=== PATIENT | male | born 1945 | race Caucasian/White ===

== ENCOUNTER → 2017-02-24 | Outpatient (CLI) | payer OTHER, MEDICARE | LOC: FIMAGING 11:56 | PROVIDERS: ATTEND Neurological Surgery | DX: M99.71 Connective tissue and disc stenosis of intervertebral foramina of cervical region (principal); M89.38 Hypertrophy of bone, other site; Z98.1 Arthrodesis status ==

== ENCOUNTER → 2017-03-09 | Outpatient (CLI) | payer OTHER, MEDICARE | LOC: BMCIMAGING 11:22 | PROVIDERS: ATTEND Internal Medicine | DX: Z01.818 Encounter for other preprocedural examination (principal); Z90.2 Acquired absence of lung [part of]; Z98.1 Arthrodesis status ==

== ENCOUNTER 2017-03-15 05:38 | Inpatient (IN) | payer OTHER, MEDICARE ==
[2017-03-15] MEDS ORDERED: DEXAMETHASONE 10 MG/ML VIAL IVP ONE (06:00)
[2017-03-15] MEDS ORDERED: LR 1,000 ML IV ONE (06:26)
[2017-03-15] MEDS ORDERED: LIDOCAINE 1% 5 ML SDV ID PRN (06:26)
[2017-03-15] MEDS ORDERED: THROMBIN (BOVINE) 5,000 UNIT VIAL TP ONE ×2 (06:50→09:41)
[2017-03-15] MEDS ORDERED: BUPIVACAINE/EPI 0.25% 30 ML SDV ONE ×3 (06:50→11:07)
[2017-03-15] MEDS ORDERED: fentaNYL 100 MCG/2 ML INJ ONE ×5 (06:51→13:20)
[2017-03-15] MEDS ORDERED: PROPOFOL 200 MG/20 ML VIAL ONE ×2 (06:53)
[2017-03-15] MEDS ORDERED: MIDAZOLAM 2 MG/2 ML VIAL ONE (07:03)
[2017-03-15] MEDS ORDERED: CITRATE DEXTROSE SOLN 500 ML BAG ONE ×2 (08:10→10:23)
[2017-03-15] MEDS ORDERED: ceFAZolin 2 GM/DEXTROSE 100 ML IV ONE (08:30)
[2017-03-15] MEDS ORDERED: BUPIVACAINE 0.25% 30 ML SDV ONE (09:41)
[2017-03-15] MEDS ORDERED: BACITRACIN 50,000 UNITS/10 ML SYR IRR ONE ×2 (09:43→09:58)
[2017-03-15] MEDS ORDERED: ACETAMINOPHEN 325 MG TAB PO PRN (12:40)
[2017-03-15] MEDS ORDERED: BISACODYL 10 MG SUPP PR PRN (12:40)
[2017-03-15] MEDS ORDERED: diphenhydrAMINE 25 MG CAP PO PRN (12:40)
[2017-03-15] MEDS ORDERED: MAGNESIUM HYDROXIDE 30 ML UDCUP PO PRN (12:40)
[2017-03-15] MEDS ORDERED: ONDANSETRON DISINTEGRATING 4 MG TAB PO PRN (12:40)
[2017-03-15] MEDS ORDERED: NALOXONE HCL 0.4 MG/ML INJ IVP PRN (12:40)
[2017-03-15] MEDS ORDERED: ONDANSETRON 4 MG/2 ML VIAL IVP PRN (12:40)
[2017-03-15] MEDS ORDERED: LACTULOSE 20 GM/30 ML UDCUP PO PRN (12:40)
[2017-03-15] MEDS ORDERED: oxyCODONE IR 5 MG TAB PO PRN (12:40)
[2017-03-15] MEDS ORDERED: OXYCODONE/APAP 5/325 TAB PO PRN (12:40)
[2017-03-15] MEDS ORDERED: PROPRANOLOL HCL 20 MG TAB PO PRN (12:46)
[2017-03-15] MEDS ORDERED: NON-FORMULARY NEW DRUG (Clonazepam [Klonopin] 0.5 MG) PO PRN (12:46)
--- NOTE | 2017-03-15 12:49 | SOAPPROG ---
SOAP Progress Note Assessment/Plan: Assessment: 71 yo M sp C3-5 ACDF and posterior fusion Plan: stable to 3N PT/OT soft collar please call with neuro changes 03/15/17 12:47 Subjective: + neck pain, no arm pain. Objective: awake, alert PERRL, no facial droop TORY x 4 + light touch C/D/I x 2 ICD10 Worksheet Patient Problems: Problems Problem Status Onset Fusion of spine of cervical region Acute - ICD10 Problem Qualifiers (1) Fusion of spine of cervical region
[2017-03-15] MEDS ORDERED: DIAZEPAM 10 MG/2 ML SYR ONE (13:10)
[2017-03-15] MEDS ORDERED: KETOROLAC 30 MG/1 ML SDV ONE (13:21)
[2017-03-15] MEDS ORDERED: KETAMINE 100 MG/10 ML SYR IVP ONE (13:29)
[2017-03-15] MEDS ORDERED: HYDROmorphONE/DILAUDID 1 MG/ML SYR ONE (13:44)
--- NOTE | 2017-03-15 13:57 | GOP ---
[f rep st] OPERATIVE REPORT DATE OF OPERATION: 03/15/2017 SURGEON: Faustino Brown MD GROCERY SACKER: ZEYNEP Castro ANESTHESIA: General endotracheal. PREOPERATIVE DIAGNOSIS: 1. 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 2. Progressive cervical spondylitic myelopathy. 3. Left upper extremity radiculopathy. 4. Failed conservative care. POSTOPERATIVE DIAGNOSIS: 1. 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 2. Progressive cervical spondylitic myelopathy. 3. Left upper extremity radiculopathy. 4. Failed conservative care. 5. Morbid obesity. PROCEDURE PERFORMED: 1. Removal of C4-5 anterior cervical plate with exploration of spinal fusion. 2. Redo C4-5 and new C3-4 anterior cervical diskectomy and arthrodesis with placement of 2 structur al PEEK interbody spacers with local autograft. 3. Placement of a [employer] anterior cervical plate from C3 through C5. 4. Partial C4 vertebral corpectomy. 5. Use of intraoperative microscopy and fluoroscopy. FINDINGS: ESTIMATED BLOOD LOSS: 50 cc. INDICATIONS: The patient is a 71-year-old man with a history of a C4-5 fusion and apparent pseudoar throsis/nonunion on x-rays and severe residual C4-5 neuroforaminal stenosis on MRI. He has disc deg eneration and collapse, along with a herniation and ligamentum flavum hypertrophy at C3-4, causing s evere cervical stenosis and spinal cord compression. He also has ligamentum flavum hypertrophy at C 4-5. The patient presents now for a surgical decompression, stabilization, and revision of the C4-5 level with a new C3-4 anterior cervical diskectomy and arthrodesis. DESCRIPTION OF PROCEDURE: After informed consent was obtained, the patient was taken to the operati ng room and placed in the supine position, the head in the halter retractor system. The anterior ce rvical region was prepped and draped in a sterile fashion. After fluoroscopic localization of the c orrect levels, the subcutaneous and intramuscular tissues were infiltrated with local anesthesia. A horizontal incision was made. Just left of the midline, and a large skin crease at the C4-5 level. This was carried down through the platysma which was then incised using monopolar electrocautery a nd carried in the avascular plane between the sternocleidomastoid and carotid sheath laterally and t he strap muscles, trachea, and esophagus medially down to the prevertebral fascia, which was careful ly incised with Metzenbaum scissors. The C3-4 and C4-5 interspaces were carefully identified, and t he prior plate carefully dissected out and removed in the standard fashion. The C4-5 interspace was then explored and noted to have some movement that verified the nonunion. The area was carefully d issected out, and meticulous hemostasis was achieved from C3 through C5. The distraction pins were then inserted, and under high-power microscopic visualization, a new diskectomy was performed at the C3-4 level, which was carried down with the posterior longitudinal ligament. This was carefully re moved, and bilateral foraminotomies were performed. A redo C4-5 diskectomy was also performed with complete drilling out of the old allograft and fibrous tissue down to what was thought to be the pos terior longitudinal ligament and dura, which was scarred in. The 5-0 angled curette and the 1 and 2 mm Kerrison rongeurs were utilized to carefully dissect out and remove any residual foraminal steno sis from both scar tissue and osteophytic hypertrophy. Following this, the decompression of the wou nd and disc spaces were copiously irrigated with antibiotic irrigation. Meticulous hemostasis was a chieved. Note that a fair amount of bone had to be removed from both the C3-4 and C4-5 level, espec ially at the C4-5 level extending up into the C4 vertebral body and from the C3-4 level extending do wn in the C4 vertebral body, which we managed to approximately 50% removal of the vertebral body for partial C4 vertebral corpectomy. Following this, meticulous hemostasis was again achieved, and the interspaces were appropriately measured. Two structural PEEK interbody spacers, along with local a utograft, were placed in the C3-4 and C4-5 interspaces. The distraction was then removed and follow ing x-ray verification of good position of the plate screws and interbody spacers, the uncovertebral joints and anterior hole plate were gently packed with residual local autograft. A drain was place d. The subcutaneous and intramuscular tissues were re-infiltrated with local anesthesia. The wound was closed in a layered fashion using interrupted Vicryl sutures, followed by Steri-Strips on the s kin. COMPLICATIONS: None. DISPOSITION: The patient remained intubated and was repositioned for the prone portion of the opera tion. /[id number]/MODL
--- NOTE | 2017-03-15 14:13 | GOP ---
[f rep st] OPERATIVE REPORT DATE OF OPERATION: 03/15/2017 SURGEON: Faustino Brown MD LINEN CONTROLLER: ZEYNEP Castro ANESTHESIA: General endotracheal. PREOPERATIVE DIAGNOSIS: 1. 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 2. Progressive cervical spondylotic myelopathy. 3. Left upper extremity radiculopathy. 4. Failed conservative care. POSTOPERATIVE DIAGNOSIS: 1. 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 2. Progressive cervical spondylotic myelopathy. 3. Left upper extremity radiculopathy. 4. Failed conservative care. 5. Morbid obesity. PROCEDURE PERFORMED: 1. C3 through C5 laminectomies for decompression of spinal canal. 2. Left C4-5 foraminotomy. 3. Placement of C3 through C5 posterior segmental (lateral mass screw) fixation and posterolateral fusion with local autograft. FINDINGS: ESTIMATED BLOOD LOSS: About 100 cc. INDICATIONS: The patient is a 71-year-old man with a history of a C4-5 fusion and apparent pseudoarthrosis/nonunion on x-rays and severe residual C4-5 neuroforaminal stenosis on MRI. He has disk degeneration and collapse, along with a herniation and ligamentum flavum hypertrophy at C3-4, causing severe cervical stenosis and spinal cord compression. He also has ligamentum flavum hypertrophy at C4-5. The patient Presents now for a surgical decompression, stabilization, and revision of the C4 -5 level with a new C3-4 anterior cervical diskectomy and arthrodesis. DESCRIPTION OF PROCEDURE: The patient's body habitus made positioning very difficult, and the large skin creases in the back of his neck made it also difficult to even make an incision. The skin and fascial layer, which was incised using monopolar electrocautery and carried in the subperiosteal plane along the spinous processes down to lamina at C3, C4 and C5. Intraoperative fluoroscopy was utilized to verify the correct levels. Following this, the [employer] drill system with a match stick fluted bur was carefully utilized to drill a trough between the lateral masses and the lamina and spinous processes, which were then removed in standard fashion for a full laminectomy at C3 and C4 with a partial laminectomy at C5 and slight undercutting of C2 in order to ensure adequate decompression and avoid kinking of the dura and spinal cord. Following adequate decompression and copious irrigation of the wound and meticulous hemostasis, bipolar fluoroscopy was utilized to place a lateral mass screw fixation at C3, C4, and C5 using 12 mm screws. Biplanar fluoroscopy was utilized to verify good position of the screws. Following this, rods were placed and secured with maximal lordosis. The wound was again copiously irrigated and hemostasis was achieved. A few interrupted Vicryl sutures were then placed in the posterior muscle gently, followed by a running Mersilene suture in the fascia. The subcutaneous and intramuscular tissues were then re- infiltrated with local anesthesia, and the wound was closed in a layered fashion using interrupted Vicryl sutures, followed by Steri-Strips on the skin. COMPLICATIONS: None. DISPOSITION: The patient was extubated and transferred to the recovery room in stable condition. /[id number]/MODL MTDD
[2017-03-15] MEDS: HYDROmorphONE/DILAUDID 1 MG/ML SYR IVP PRN ×4 (15:44→20:14)
[2017-03-15] MEDS: NS W/ 20 KCl/L 1,000 ML IV SCH (15:46)
[2017-03-15] MEDS: POLYETHYLENE GLYCOL 3350 17 GM PKT PO SCH ×2 (16:44→22:33)
[2017-03-15] MEDS: GABAPENTIN 300 MG CAP PO SCH ×2 (16:44→20:27)
[2017-03-15] MEDS: METHOCARBAMOL 750 MG TAB PO PRN (18:06)
[2017-03-15] MEDS: ATORVASTATIN CALCIUM 20 MG TAB PO SCH (18:33)
[2017-03-15] MEDS: ZOLPIDEM TARTRATE 5 MG TAB PO SCH (20:18)
[2017-03-15] MEDS: morphINE SR 15 MG TAB PO SCH ×2 (20:18→23:32)
[2017-03-15] MEDS: SENNOSIDES/DOCUSATE SODIUM TAB PO SCH (20:23)
[2017-03-15] MEDS: FAMOTIDINE 20 MG/NACL 50 ML IV SCH (20:30)
[2017-03-15] MEDS: DIAZEPAM 10 MG/2 ML SYR IVP PRN (21:05)
[2017-03-15] MEDS: HYDROmorphONE/DILAUDID 6 MG/30 ML PCA IV PRN (22:42)
[2017-03-15] MEDS: HYDROCODONE/APAP 10/325 TAB PO PRN (22:52)
[2017-03-16] MEDS: DIAZEPAM 10 MG/2 ML SYR IVP PRN ×2 (05:17→15:47)
[2017-03-16] MEDS: NS W/ 20 KCl/L 1,000 ML IV SCH ×2 (05:17→21:12)
[2017-03-16 05:26] LABS: % IMMATURE GRANULYOCYTES 0.6 % (0.0-1.1); ABSOLUTE IMMATURE GRANULOCYTES 0.11 10^3/uL (0.00-0.10); ADD DIFF? NO; ADD MORPH? NO; ADD SCAN? NO; ATYPICAL LYMPHOCYTE FLAG 0 (0-99); FRAGMENT RBC FLAG 0 (0-99); HEMATOCRIT 43.9 % (40.0-51.0); HEMOGLOBIN 15.1 g/dL (13.7-17.5); LEFT SHIFT FLG 40 (0-99); LIPEMIA HEMOLYSIS FLAG 90 (0-99); MEAN CELL HEMOGLOBIN 32.3 pg (27.9-34.1); MEAN CELL HEMOGLOBIN CONCENTR. 34.4 g/dL (32.4-36.7); MEAN CELL VOLUME 93.8 fL (81.5-99.8); MEAN PLATELET VOLUME 11.4 fL (8.7-11.7); PLATELET CLUMPS FLAG 0 (0-99); PLATELET COUNT 184 10^3/uL (150-400); RED BLOOD CELL COUNT 4.68 10^6/uL (4.40-6.38); RED CELL DISTRIBUTION WIDTH 12.8 % (11.5-15.2)
[2017-03-16 05:49] LABS: ANION GAP 10 mEq/L (8-16); CALCIUM 8.8 mg/dL (8.5-10.4); CARBON DIOXIDE 24 mEq/l (22-31); CHLORIDE 106 mEq/L (97-110); CREATININE 0.8 mg/dL (0.7-1.3); GLOMERULAR FILTRATION RATE > 60; GLUCOSE 125 mg/dL (70-100); POTASSIUM 4.8 mEq/L (3.5-5.2); SODIUM 140 mEq/L (134-144)
--- NOTE | 2017-03-16 06:43 | SOAPPROG ---
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 Objective: Vital Signs Temp Pulse Resp BP Pulse Ox 36.6 C 88 18 130/69 H 95 03/16/17 04:58 03/16/17 04:58 03/16/17 04:58 03/16/17 04:58 03/16/17 04:58 Laboratory Results 03/16/17 04:20 03/16/17 04:20 03/15/17 03/16/17 03/17/17 05:59 05:59 05:59 Intake Total 3185 Output Total 1645 Balance 1540 AAOx4, +FC PERRL, EOMI, no facial droop 5/5 + light touch C/D/I x 2 ICD10 Worksheet Patient Problems: Problems Problem Status Onset Fusion of spine of cervical region Acute - ICD10 Problem Qualifiers (1) Fusion of spine of cervical region
[2017-03-16] MEDS: HYDROmorphONE/DILAUDID 6 MG/30 ML PCA IV PRN ×2 (08:27→22:37)
[2017-03-16] MEDS: POLYETHYLENE GLYCOL 3350 17 GM PKT PO SCH ×3 (08:37→21:12)
[2017-03-16] MEDS: FAMOTIDINE 20 MG/NACL 50 ML IV SCH ×2 (08:37→21:10)
[2017-03-16] MEDS: morphINE SR 15 MG TAB PO SCH ×2 (08:40→21:12)
[2017-03-16] MEDS: SENNOSIDES/DOCUSATE SODIUM TAB PO SCH ×2 (08:40→21:13)
[2017-03-16] MEDS: PANTOPRAZOLE SODIUM 40 MG TAB PO SCH (08:40)
[2017-03-16] MEDS: GABAPENTIN 300 MG CAP PO SCH ×3 (08:40→21:10)
[2017-03-16] MEDS ORDERED: NON-FORMULARY NEW DRUG (Esomeprazole Magnesium [Nexium 24hr] 22.3 MG) PO SCH (09:00)
[2017-03-16] MEDS: ATORVASTATIN CALCIUM 20 MG TAB PO SCH (21:09)
[2017-03-16] MEDS: ZOLPIDEM TARTRATE 5 MG TAB PO SCH (21:13)
[2017-03-16] MEDS: DIAZEPAM 5 MG TAB PO PRN (23:06)
[2017-03-17] MEDS: METHOCARBAMOL 750 MG TAB PO PRN (05:31)
[2017-03-17] MEDS: NS W/ 20 KCl/L 1,000 ML IV SCH ×2 (07:41→21:08)
--- NOTE | 2017-03-17 07:48 | SOAPPROG ---
SOAP Progress Note Assessment/Plan: Assessment: 71 yo male POD #2 s/p C3-5 ACDF and posterior fusion C3-5. Acute Urinary retention overnight requiring straight cath x 2 with approx 1000ml each time. Left finger paresthesias improved today sore throat difficulty swallowing Plan: Place Bhatia this AM Start Flomax PT/OT/ST Continue soft collar continue both ant and post JPs. 03/17/17 07:44 Subjective: lying in bed, pain well controlled. Denies new weakness or tingling. Unable to void, Mild HERNANDEZ. Objective: Vital Signs Temp Pulse Resp BP Pulse Ox 36.8 C 98 18 140/94 H 94 03/17/17 03:00 03/17/17 05:00 03/17/17 05:00 03/17/17 05:00 03/17/17 05:00 Laboratory Results 03/16/17 04:20 03/16/17 04:20 03/16/17 03/17/17 03/18/17 05:59 05:59 05:59 Intake Total 3185 1150 Output Total 1645 3106 Balance 1540 -1956 Ant TRISTIAN: 36ml Post TRISTIAN: 70 ml Neuro: CUEVAS, sens +LT equal timber killer Ant dressing: CDI Post dressing: Moderate saturation ICD10 Worksheet Patient Problems: Problems Problem Status Onset Fusion of spine of cervical region Acute
[2017-03-17] MEDS: SENNOSIDES/DOCUSATE SODIUM TAB PO SCH ×2 (08:28→21:05)
[2017-03-17] MEDS: PANTOPRAZOLE SODIUM 40 MG TAB PO SCH (08:28)
[2017-03-17] MEDS: TAMSULOSIN HCL 0.4 MG CAP PO SCH (08:28)
[2017-03-17] MEDS: GABAPENTIN 300 MG CAP PO SCH ×3 (08:28→21:04)
[2017-03-17] MEDS: FAMOTIDINE 20 MG TAB PO SCH ×2 (08:29→21:09)
[2017-03-17] MEDS: morphINE SR 15 MG TAB PO SCH ×2 (09:14→21:10)
[2017-03-17] MEDS: HYDROCODONE/APAP 10/325 TAB PO PRN ×2 (13:11→16:02)
[2017-03-17] MEDS: DIAZEPAM 5 MG TAB PO PRN (13:13)
[2017-03-17] MEDS: POLYETHYLENE GLYCOL 3350 17 GM PKT PO SCH ×3 (14:20→21:02)
[2017-03-17] MEDS: clonazePAM 0.5 MG TAB PO PRN (16:03)
[2017-03-17] MEDS: ATORVASTATIN CALCIUM 20 MG TAB PO SCH (18:11)
[2017-03-17] MEDS: ZOLPIDEM TARTRATE 5 MG TAB PO SCH (21:09)
[2017-03-18] MEDS: DIAZEPAM 10 MG/2 ML SYR IVP PRN (00:10)
[2017-03-18] MEDS: HYDROCODONE/APAP 10/325 TAB PO PRN ×4 (01:15→20:07)
[2017-03-18] MEDS: clonazePAM 0.5 MG TAB PO PRN ×2 (01:15→17:12)
[2017-03-18] MEDS: FLUTICASONE NASAL 120 SPRAYS/16 GM MDI EACHNARE PRN ×3 (01:25→21:32)
[2017-03-18] MEDS: METHOCARBAMOL 750 MG TAB PO PRN ×3 (03:04→13:24)
[2017-03-18] MEDS: HYDROmorphONE/DILAUDID 1 MG/ML SYR IVP PRN ×2 (03:04→06:31)
--- NOTE | 2017-03-18 07:48 | SOAPPROG ---
SOAP Progress Note Assessment/Plan: Assessment: 71 yo M POD #3 C3-5 ACDF and posterior fusion Plan: stable difficulty with sleeping, suggested to not add ambien but try to get patient some rest this am. 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, switch to po meds PT/OT scd/angelika for dvt prophylaxis, lovenox starts POD #3 (03/18/17) please call with neuro changes discussed with DR Hutson 03/15/17 12:47 03/16/17 06:41 03/18/17 07:47 Subjective: + neck pain, swallowing better, no arm pain, arm paresthesias better Objective: Vital Signs Temp Pulse Resp BP Pulse Ox 36.6 C 68 16 135/81 H 96 03/17/17 22:35 03/17/17 22:35 03/17/17 22:35 03/17/17 22:35 03/17/17 22:35 Laboratory Results 03/16/17 04:20 03/16/17 04:20 03/17/17 03/18/17 03/19/17 05:59 05:59 05:59 Intake Total 1150 1150 1877 Output Total 3106 2175 Balance -1955 -1024 1877 AAOX4, +FC PERRL, EOMI, no facial droop 5/5 + light touch C/D/I x 2 ICD10 Worksheet Patient Problems: Problems Problem Status Onset Fusion of spine of cervical region Acute - ICD10 Problem Qualifiers (1) Fusion of spine of cervical region
[2017-03-18] MEDS: morphINE SR 15 MG TAB PO SCH ×2 (08:44→21:38)
[2017-03-18] MEDS: TAMSULOSIN HCL 0.4 MG CAP PO SCH (08:44)
[2017-03-18] MEDS: SENNOSIDES/DOCUSATE SODIUM TAB PO SCH ×2 (08:44→21:38)
[2017-03-18] MEDS: FAMOTIDINE 20 MG TAB PO SCH (08:44)
[2017-03-18] MEDS: PANTOPRAZOLE SODIUM 40 MG TAB PO SCH (08:44)
[2017-03-18] MEDS: POLYETHYLENE GLYCOL 3350 17 GM PKT PO SCH ×3 (08:44→20:07)
[2017-03-18] MEDS: ENOXAPARIN 40 MG/0.4 ML SYR SC SCH (08:44)
[2017-03-18] MEDS: GABAPENTIN 300 MG CAP PO SCH ×3 (08:44→21:40)
[2017-03-18] MEDS: NS W/ 20 KCl/L 1,000 ML IV SCH (10:47)
[2017-03-18] MEDS: ATORVASTATIN CALCIUM 20 MG TAB PO SCH (17:06)
[2017-03-18] MEDS: ZOLPIDEM TARTRATE 5 MG TAB PO SCH (21:33)
[2017-03-18] MEDS: DIAZEPAM 5 MG TAB PO PRN (21:33)
[2017-03-18] MEDS ORDERED: IPRATROPIUM/ALBUTEROL 3 ML DEYVIAL IH ONE (23:30)
[2017-03-18 23:48] LABS: BASE EXCESS 2.8 mEq/L (-2.5-2.5); BICARBONATE 29 mEq/L (22-26); MEASURED OXYGEN SATURATION 82 % (92-95); PCO2 50 mmHg (34-38); PO2 47 mmHg (65-75); TCO2 30 mEq/L (23-27)
[2017-03-19] MEDS ORDERED: LORazepam 2 MG/ML INJ ONE (00:41)
[2017-03-19] MEDS ORDERED: hydrALAZINE 20 MG/ML VIAL IVP PRN (00:45)
[2017-03-19] MEDS ORDERED: IPRATROPIUM/ALBUTEROL 3 ML DEYVIAL IH PRN (00:45)
[2017-03-19] MEDS ORDERED: ALBUTEROL 3 ML DEYVIAL IH PRN (00:45)
[2017-03-19] MEDS: HYDROmorphONE/DILAUDID 1 MG/ML SYR IVP PRN (00:58)
[2017-03-19] MEDS: LORazepam 2 MG/ML INJ IVP PRN (00:58)
[2017-03-19] MEDS: ERTAPENEM 1 GM in NS 100 ML IV SCH ×2 (01:05→21:25)
[2017-03-19] MEDS ORDERED: DEXMEDETOMIDINE HCL 400 MCG in NS 100 ML IV SCH (01:30)
[2017-03-19] MEDS ORDERED: LIDOCAINE 2% JELLY 5 ML TUBE ONE (01:58)
[2017-03-19] MEDS ORDERED: LIDOCAINE 1% 5 ML SDV ONE (02:01)
[2017-03-19] MEDS ORDERED: LIDOCAINE 1% 30 ML SDV ONE (02:02)
[2017-03-19] MEDS ORDERED: PROPOFOL/EMULSION 1,000 MG/100 ML BOTTLE IV ONE (02:22)
[2017-03-19] MEDS ORDERED: fentanYL/NACL/100 ML BAG IV ONE (02:31)
[2017-03-19 02:35] LABS: ALANINE AMINOTRANSFERASE 49 IU/L (21-72); ALBUMIN 3.9 g/dL (3.5-5.0); ALKALINE PHOSPHATASE 58 IU/L (38-126); ANION GAP 11 mEq/L (8-16); ASPARTATE AMINOTRANSFERASE 54 IU/L (17-59); BILIRUBIN,TOTAL 1.5 mg/dL (0.1-1.4); CALCIUM 8.7 mg/dL (8.5-10.4); CARBON DIOXIDE 28 mEq/l (22-31); CHLORIDE 96 mEq/L (97-110); CREATININE 0.6 mg/dL (0.7-1.3); GLOMERULAR FILTRATION RATE > 60; GLUCOSE 128 mg/dL (70-100); SODIUM 135 mEq/L (134-144); TOTAL PROTEIN 7.4 g/dL (6.3-8.2)
[2017-03-19 02:37] LABS: POTASSIUM 3.9 mEq/L (3.3-5.0)
[2017-03-19 02:46] LABS: TROPONIN I < 0.012 ng/mL (0-0.034)
[2017-03-19] MEDS ORDERED: IOPAMIDOL (ISOVUE-300) 100 ML BTL ONE (02:46)
[2017-03-19] MEDS ORDERED: ALTEPLASE 2 MG VIAL IVP PRN (02:48)
[2017-03-19] MEDS ORDERED: NOREPINEPHRINE/NS 4 MG/500 ML BAG IV ONE (02:51)
[2017-03-19] MEDS ORDERED: ALBUMIN 5% 500 ML IV ONE (02:52)
[2017-03-19] MEDS ORDERED: ALBUMIN 5% 500 ML BOTTLE IV ONE (02:54)
--- NOTE | 2017-03-19 02:59 | CPEKG ---
Heart Rate: 85 RR Interval: 706 P-R Interval: 168 QRSD Interval: 74 QT Interval: 364 QTC Interval: 433 P Gervais: 57 QRS Gervais: 72 T Wave Gervais: 24 EKG Severity - BORDERLINE ECG - EKG Impression: SINUS RHYTHM EKG Impression: PROBABLE LEFT ATRIAL ABNORMALITY Electronically Signed By: Kahlil Lawson 19-Mar-2017 16:24:38
[2017-03-19] MEDS ORDERED: fentaNYL/NACL 100 ML IV SCH (03:00)
[2017-03-19 03:25] LABS: BASE EXCESS 1.2 mEq/L (-2.5-2.5); BICARBONATE 26 mEq/L (22-26); IONIZED CALCIUM 1.07 MMOL/L (1.12-1.30); MEASURED OXYGEN SATURATION 99 % (92-95); PCO2 45 mmHg (34-38); PO2 131 mmHg (65-75); TCO2 27 mEq/L (23-27)
[2017-03-19 03:26] LABS: SIMV YES
[2017-03-19 03:27] LABS: END TIDAL CO2 31; O2 CONCENTRATIION 100 % (0-100); P/F RATIO 131 RATIO; PATIENT RATE 14; PRESSURE SUPPORT 10
[2017-03-19 03:30] LABS: % IMMATURE GRANULYOCYTES 0.7 % (0.0-1.1); ABSOLUTE IMMATURE GRANULOCYTES 0.07 10^3/uL (0.00-0.10); ADD DIFF? NO; ADD MORPH? NO; ADD SCAN? NO; ATYPICAL LYMPHOCYTE FLAG 0 (0-99); FRAGMENT RBC FLAG 0 (0-99); HEMOGLOBIN 13.2 g/dL (13.7-17.5); LEFT SHIFT FLG 10 (0-99); LIPEMIA HEMOLYSIS FLAG 90 (0-99); MEAN CELL HEMOGLOBIN 31.9 pg (27.9-34.1); MEAN CELL HEMOGLOBIN CONCENTR. 33.8 g/dL (32.4-36.7); MEAN CELL VOLUME 94.2 fL (81.5-99.8); MEAN PLATELET VOLUME 11.1 fL (8.7-11.7); PLATELET CLUMPS FLAG 10 (0-99); PLATELET COUNT 179 10^3/uL (150-400); RED BLOOD CELL COUNT 4.14 10^6/uL (4.40-6.38); RED CELL DISTRIBUTION WIDTH 11.9 % (11.5-15.2)
--- NOTE | 2017-03-19 03:43 | GPN ---
[f rep st] PROCEDURE NOTE DATE OF PROCEDURE: 03/19/2017 PROCEDURE: Flexible fiberoptic bronchoscopy. REASON FOR THE PROCEDURE: Respiratory failure, possible aspiration. PROCEDURE NOTE: The risks and benefits of the procedure were explained to the patient's , who a greed to proceed. The entire procedure was performed in the intensive care unit with the patient un tia blood pressure, EKG, and oximetry monitoring. It was my assessment that there was no risk of ai rborne infection from the procedure, which was performed emergently in the patient's intensive care unit room. The patient's oropharynx was anesthetized with lidocaine, and a bite block was placed be tween his teeth. The bronchoscope was advanced through the bite block into the vocal cords. I imme diately proceeded directly past the vocal cords into the main trachea where a small amount of purule nt secretions were encountered. An 8.0 endotracheal tube was advanced over the bronchoscope and was secured in place in the distal trachea. The patient's saturations remained in the 90% range throug hout. The patient was ventilated with a bag, and then the bronchoscope was reintroduced. I examine d all airways bilaterally, encountered a small to moderate amount of mucopurulent secretions scatter ed throughout, none of which were occluding any major airways. These were all suctioned and small v olume lavage was performed of both lower lobes. All airways were clear of secretions at the end of the procedure. His oxygen saturations remained in the 90s. The patient received 3 mg of Versed and 100 mcg of fentanyl intravenously during the procedure for analgesia and sedation. The postprocedu re chest x-ray shows increased edema/infiltrate in the right more so than left lung, and an appropri ately placed endotracheal tube. /[id number]/MODL
[2017-03-19 04:03] LABS: TROPONIN I 0.083 ng/mL (0-0.034)
[2017-03-19 04:07] LABS: COLOR AMBER; LEUKOCYTE ESTERASE,URINE NEGATIVE (NEGATIVE); NITRITE,URINE NEGATIVE (NEGATIVE)
[2017-03-19 04:12] LABS: BACTERIA TRACE /hpf (NONE SEEN); HYALINE CASTS 25-50 /lpf (0-1); MUCUS 4+ /lpf (NONE-1+); RBC,URINE 50-182 /hpf (0-3); WBC,URINE 25-50 /hpf (0-3)
--- NOTE | 2017-03-19 04:13 | GCON ---
[f rep st] CONSULTATION MEDICINE CONSULTATION DATE OF CONSULTATION: 03/18/2017 CHIEF COMPLAINT: Shortness of breath. HISTORY: This is a 71-year-old man with a past medical history that includes cervical stenosis, as well as BPH, GERD, and hyperlipidemia who is postop day 3 from a C3-5 ACDF and posterior fusion. I was called to the patient's bedside at the request of Dr. Brown for evaluation of acute onse t of shortness of breath developing this evening. Apparently, the patient had been doing well recov ering from his surgery. It was noted that he was having anxiety and a low pain threshold, but other garcia there were no new concerns raised in the postop period. This evening he developed acute worsen ing shortness of breath and a stat chest x-ray and ABG were obtained. The patient was noted to be r etaining CO2 with a pCO2 of 50 and a chest x-ray concerning for a likely right-sided pneumonia witho ut other acute changes. On evaluation, patient was noted to be in significant respiratory distress, however. He was transferred to the ICU and started on BiPAP. Respiratory distress continued. The re was some concern for airway obstruction and he did have some relief with airway placed by Respira tory Therapy; however, he became increasingly more anxious and agitated and was having difficulty ma intaining his airway and at this time the patient is currently awaiting intubation by Pulmonology. The patient's mental status prohibited obtaining much more of a history from him and therefore the m ajority of this history is obtained by chart review and per discussion with staff. PAST MEDICAL HISTORY: Includes: 1. Cervical stenosis. 2. Hyperlipidemia. 3. GERD. 4. BPH. 5. Colon polyps. PAST SURGICAL HISTORY: Includes: 1. C4-5 ACDF. 2. C3-5 ACDF and posterior fusion, as per HPI. 3. Right hemicolectomy. 4. Thoracotomy. FAMILY HISTORY: Father of lung cancer. SOCIAL HISTORY: Patient is a never smoker. He is a nondrinker. He is . His is at bed side. REVIEW OF SYSTEMS: A 10-point review of systems unobtainable secondary to patient's respiratory dis tress. MEDICATIONS: Home medications include: 1. Klonopin. 2. Ambien. 3. Zocor. 4. Propranolol. 5. Gabapentin. 6. Flonase. 7. Nexium. 8. Aspirin. ALLERGIES: No known drug allergies. PHYSICAL EXAMINATION: VITAL SIGNS: At the time of initial evaluation, BP elevated 180s over 90s to 150, heart rate was ranging from 105 to 128, respiratory rate in the low 20s, O2 sats as low as 86% on 80% BiPAP. The patient is afebrile. GENERAL APPEARANCE: This is an obese male. He is agitated and in mild respiratory distress. EYES: Anicteric. HENT: Oropharynx clear. There is a soft collar in place without obvious stridor, but difficult to assess. There are 2 TRISTIAN drains wit h minimal serosanguineous output. CARDIOVASCULAR: Tachycardic, regular. No MRG. PULMONARY: Coarse breath sounds throughout. Scattered wheeze, both inspiratory and expiratory. In creased work of breathing using accessory muscles. ABDOMEN: Obese, distended, nontender. EXTREMIT IES: Trace bilateral lower extremity edema. SKIN: Warm, dry, well perfused. NEURO/PSYCH: Patien t is alert, but agitated, and anxious, and in respiratory distress. He is moving all 4 extremities. LABORATORY DATA: Labs reviewed. Most recent CBC was from the with a white blood cell count at that point of 17, hematocrit 43.9, platelets 184. Blood gas shows a pCO2 of 50, pH of 7.38, O2 is 4 7. Most recent chemistry was from March 18 with a creatinine of 0.6, glucose of 132. IMAGING: Chest x-ray, personally reviewed and interpreted, shows a right-sided interstitial opacity , likely pneumonia, involving the upper and lower lobes without pneumothorax or other abnormalities. Left hemidiaphragm is elevated. Telemetry strip reviewed and interpreted shows sinus tachycardia without clear ischemic changes. ASSESSMENT/PLAN: This is a 71-year-old man status post C3-5 anterior cervical diskectomy and fusion , and posterior fusion with a hospital course complicated by acute hypoxic respiratory failure. 1. Acute hypoxic/hypercarbic respiratory failure. Patient with some CO2 retention, but now worseni ng airway obstruction limiting his ability to continue oxygenating appropriately. Possible neck hem atoma versus just general swelling being of concern. He does also have evidence of a new right-side d pneumonia. At this time given concerns that he is unable to continue to protect his airway, he wi ll be emergently intubated. Started ertapenem for possible aspiration pneumonia. We will continue suction and bronchodilators for a component of reactive airways as noted by significant diffuse whee ze. 2. Right middle and lower lobe pneumonia; as per above, concerning for aspiration in this postop pa tient. Started on ertapenem. We will obtain blood and sputum cultures. 3. Postop anterior cervical diskectomy and fusion/posterior fusion at C3-5, followed by Neurosurger y. Again, a CT of the neck will be obtained to rule out worsening soft tissue edema or hematoma. 4. Leukocytosis. Will recheck a CBC. Possible stress response versus a sign of infection with not ed pneumonia as per above. 5. Hypertension. This is in the setting of significant anxiety and respiratory distress. Improved with better airway management. We will continue to trend; p.r.n. hydralazine if needed. 6. Anxiety as a chronic issue and possibly contributing to his worsening respiratory status. He is on Klonopin chronically at home. We will continue p.r.n. benzodiazepines as needed. Suspect large ly related to worsening respiratory status, however. 7. DVT prophylaxis. Lovenox. 8. Disposition: Inpatient status. Patient is currently critically ill in the ICU. Greater than 80 minutes of critical care time was spent in care of this patient at bedside, as well as in coordination of care, and evaluating labs, and radiographic images. /[id number]/MODL
--- NOTE | 2017-03-19 04:33 | GCON ---
[f rep st] CONSULTATION PULMONARY/CRITICAL CARE CONSULTATION DATE OF CONSULTATION: 03/19/2017 REFERRING PHYSICIAN: Faustino Brown MD REASON FOR CONSULTATION: Evaluation and management of respiratory failure. HISTORY: The patient is a 71-year-old gentleman who underwent anterior and posterior cervical spine surgery on 03/15/17 with redo of a prior fusion, as well as anterior diskectomy at levels C3 throug h C5. The intraoperative course was unremarkable. He was on 2-3 L of oxygen until early this morni ng when he started to have increased confusion/combativeness, and increased oxygen needs and respira tory distress. He was a STAT call moved to the ICU where he was placed on BiPAP with temporary impr ovement, but he continued to get more agitated. An oral airway was placed, and I was asked to call emergently to see the patient and assist in airway management. The patient was ventilating, but not protecting his airway well and was intermittently sedated and agitated. I emergently intubated the patient with a bronchoscope and removed a small to moderate amount of scattered secretions. His ox ygen saturations were in the 90s throughout. Postprocedure, his systolic blood pressure fell to the 50s, and has improved to the 80s-90s with IV fluids, as well as norepinephrine and holding his fidel tion. 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 Status post left chest surgery with resection of a benign tumor. MEDICATIONS: At the time of admission include Nexium, aspirin, gabapentin, propranolol, Flonase, cl onazepam, Ambien, and simvastatin. Here in the hospital, he is on diazepam, Benadryl, Lovenox, theron pentin, Dilaudid, morphine, oxycodone, and Ambien. ALLERGIES: None. SOCIAL HISTORY: The patient does drink socially, but has not had anything to drink in several weeks . He has never smoked. FAMILY HISTORY: Unremarkable. REVIEW OF SYSTEMS: Unobtainable. PHYSICAL EXAMINATION: GENERAL: The patient was awake and sedated, but arousable upon presentation. Currently, he is sedated and not arousable. VITAL SIGNS: His systolic blood pressure is currentl y 92/54 on norepinephrine at 6. His heart rate is 73, he is afebrile. Oxygen saturations are 100% on a ventilator. HEENT: Normocephalic and atraumatic. No icterus. NECK: No JVD. Trachea is mid line. CHEST: Clear to auscultation. CARDIAC: Regular rate and rhythm without murmur. ABDOMEN: Soft, nontender. Bowel sounds are present. EXTREMITIES: No clubbing, cyanosis, or edema. LABORATORY DATA: A chemistry group from 2 hours ago shows normal chemistries with a glucose of 128, a bilirubin of 1.5. A white blood count on March 16 was 17.2. Hemoglobin from several hours ago wa s 16.0. An arterial blood gas from prior to intubation showed a pH of 7.3 with a pO2 of 47 and a CO 2 of 50 with a bicarbonate of 30 on oxygen at 4 L. IMAGING: A chest x-ray shows right greater than left alveolar and interstitial opacities. The left diaphragm is elevated. This was present prior to surgery. An endotracheal tube is in appropriate position. Images interpreted by me. A 12-lead ECG shows normal sinus rhythm with no acute changes interpreted by me. ASSESSMENT: 1. Acute respiratory failure. This may be due to a combination of airway edema from his surgery, a s well as sedation and possible aspiration. His airway is now protected with an endotracheal tube, and he is adequately oxygenating on the ventilator. Cardiac cause is also possible, but an ECG does not look concerning. His troponin is pending. He has been started empirically on Invanz. 2. Hypotension. This occurred after intubation and is likely a combination of sedation and loss of adrenergic tone from intubation and narcotics. He is responding now to IV fluids. Pneumonia/sepsi s is also a possibility, as is a cardiac contribution as discussed above. 3. Status post left chest surgery with elevated left diaphragm. PLAN: I have given IV fluid boluses, both albumin and saline, and started norepinephrine for his bl ood pressure. I have ordered a lactate, and the patient has already been started on ertapenem. I h ave ordered a sputum culture and blood cultures have been ordered. I discussed the patient's status with the at the bedside. An ionized calcium was also ordered. The patient will be going down for a CT scan of the neck shortly per Dr. Brown. I have ordered a PICC line for the mornin g. If his blood pressure becomes more of a problem, a central line may need to be placed. A Nicom monitor will be ordered if his blood pressure remains low despite the initial fluid boluses. Forty minutes critical care time exclusive of procedures involved in managing the patient's postproc edure hypotension. /[id number]/MODL
[2017-03-19] MEDS ORDERED: PROTOCOL MAGNESIUM 1 DOSE IV PRN (04:59)
[2017-03-19] MEDS ORDERED: PROTOCOL K PHOSPHATE 1 DOSE IV PRN (04:59)
[2017-03-19] MEDS ORDERED: PROTOCOL POTASSIUM 1 DOSE MISC PRN (04:59)
[2017-03-19] MEDS ORDERED: PROTOCOL CALCIUM 1 DOSE IV PRN (04:59)
[2017-03-19] MEDS ORDERED: NOREPINEPHRINE/NS 500 ML IV SCH (05:00)
[2017-03-19] MEDS ORDERED: NS BOLUS 1000 ML (Wide open) IV ONE (05:00)
[2017-03-19] MEDS ORDERED: CALCIUM GLUCONATE 50 ML IV ONE (05:14)
[2017-03-19] MEDS ORDERED: MIDAZOLAM 2 MG/2 ML VIAL IVP ONE (05:30)
[2017-03-19] MEDS ORDERED: fentaNYL 100 MCG/2 ML INJ IV ONE (05:30)
[2017-03-19 06:12] LABS: BICARBONATE 26 mEq/L (22-26); IONIZED CALCIUM 1.11 MMOL/L (1.12-1.30); MEASURED OXYGEN SATURATION 98 % (92-95); PCO2 39 mmHg (34-38); PO2 103 mmHg (65-75); TCO2 27 mEq/L (23-27)
[2017-03-19 06:14] LABS: O2 CONCENTRATIION 80 % (0-100); P/F RATIO 129 RATIO; SIMV YES
[2017-03-19 06:15] LABS: END TIDAL CO2 35; PATIENT RATE 15; PRESSURE SUPPORT 10
[2017-03-19] MEDS: POTASSIUM Cl (KCl) 100 ML IV SCH ×2 (06:27→08:39)
[2017-03-19] MEDS: NS W/ 20 KCl/L 1,000 ML IV SCH (06:43)
[2017-03-19] MEDS ORDERED: CHLORHEXIDINE GLUCONATE 15 ML UDL PO SCH (08:00)
--- NOTE | 2017-03-19 08:18 | SOAPPROG ---
SOAP Progress Note Assessment/Plan: Assessment: 71 yo male POD #3 s/p C3-5 ACDF and posterior fusion C3-5. Acute Urinary retention now with Barton respiratory distress requiring intubation overnight and transfer to SDU strength equal throughout CT neck not impressive for prevertebral swelling Plan: CPM in SDU Vent per intensivists Maintain barton due to ventilator and retention. Keep barton in for 1 week. incidental left pulmonary nodule. CT chest recommended per rad report. We will defer this to intensivists. Discussed with Dr. Lerma Subjective: intubated, sedated. Propofol turned off and pt opens eyes and follows commands x4 respiratory distress overnight requiring transfer to SDU and intubation Objective: Vital Signs Temp Pulse Resp BP Pulse Ox 37.9 C 93 20 107/58 L 97 03/19/17 05:00 03/19/17 07:00 03/19/17 07:00 03/19/17 07:00 03/19/17 07:00 Laboratory Results 03/19/17 03:05 03/19/17 00:42 03/18/17 03/19/17 03/20/17 05:59 05:59 05:59 Intake Total 1150 4375.0 Output Total 2175 2910 Balance -1025 1465.0 NEURO: CUEVAS x 4 to command PERRLA sensation intact Anterior incision: CDI neck supple TRISTIAN Ant:5 TRISTIAN Post: 5 Cervical xrays: stable fusion ICD10 Worksheet Patient Problems: Problems Problem Status Onset Fusion of spine of cervical region Acute
--- NOTE | 2017-03-19 08:27 | HOSPPROG ---
Hospitalist Progress Note Assessment/Plan: #Acute hypercarbic resp failure: emergently intubated overnight. Likely aspiration, opioids, airway edema. Resp cultures pending, on empiric abx for likely aspiration (diffuse right-sided infiltrates, CXR personally reviewed by me) #Indeterminate troponin: suspect due to demand. No ischemic EKG changes. Repeat trop, TTE pending #Cervical stenosis: POD #4 #Sepsis: IVFs, albumin, abx #Aspiration PNA: Ertapenem #Cervical stenosis: POD #3 C3-5 ACDF, posterior fusion C3-5 #Chronic opioid dependency: due to stenosis. Holding orals while on sedation #Leukocytosis: stress inflammation/aspiration. Nearly resolved. Cultures pending #Diet: trickle feeds #DVT ppx:SCDs #Disp: warrants ICU admission requiring ventilation, IV abx Subjective: intubated emergently overnight Objective: Vital Signs Temp Pulse Resp BP Pulse Ox 37.9 C 93 21 H 112/56 L 96 03/19/17 05:00 03/19/17 08:17 03/19/17 08:17 03/19/17 08:17 03/19/17 08:17 Laboratory Results 03/19/17 03:05 03/19/17 00:42 03/18/17 03/19/17 03/20/17 05:59 05:59 05:59 Intake Total 1150 4375.0 Output Total 2175 2910 Balance -1025 1465.0 - Physical Exam Constitutional: no apparent distress, other (sedated) Eyes: PERRL Ears, Nose, Mouth, Throat: moist mucous membranes, other Cardiovascular: regular rate and rhythym, no murmur, rub, or gallop Respiratory: no respiratory distress Gastrointestinal: normoactive bowel sounds, soft, non-tender abdomen Genitourinary: barton in urethra Skin: warm Musculoskeletal: other (soft C-collar) Neurologic: other (sedated) ICD10 Worksheet Patient Problems: Problems Problem Status Onset Fusion of spine of cervical region Acute
[2017-03-19] MEDS: PANTOPRAZOLE SODIUM 40 MG TAB PO SCH (08:40)
[2017-03-19] MEDS: morphINE SR 15 MG TAB PO SCH (08:40)
--- NOTE | 2017-03-19 08:52 | PDINTPN ---
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 -start ertapenem * Hypotension-continue IV fluids. -will give albumin -PICC line has been ordered * Sepsis * VTE prophylaxis * Stress ulcer prophylaxis * Nutrition-we will start tube feeds 35 minutes of critical care time spent with patient Case discussed with nursing and RT Subjective: Sedated and on mechanical ventilation Objective: Vital Signs Temp Pulse Resp BP Pulse Ox 37.9 C 93 21 H 112/56 L 96 03/19/17 05:00 03/19/17 08:17 03/19/17 08:17 03/19/17 08:17 03/19/17 08:17 Laboratory Results 03/19/17 03:05 03/19/17 00:42 03/18/17 03/19/17 03/20/17 05:59 05:59 05:59 Intake Total 1150 4375.0 Output Total 2175 2910 Balance -1025 1465.0 Laboratory Results 03/19/17 03:05 03/19/17 00:42 03/19/17 03/19/17 03/19/17 03:17 03:09 00:42 Puncture Site RIGHT RADIAL pCO2 45 mmHg H mmHg (34 - 38) pO2 131 mmHg H D mmHg (65 - 75) Total CO2 27 mEq/L mEq/L (23 - 27) ABG pH 7.38 (7.35 - 7.45) ABG PO2/FiO2 Ratio 131 RATIO RATIO Ionized Calcium 1.07 MMOL/L L MMOL/L (1.12 - 1.30) Total Bilirubin 1.5 mg/dL H mg/dL (0.1 - 1.4) AST 54 IU/L IU/L (17 - 59) ALT 49 IU/L IU/L (21 - 72) Alkaline Phosphatase 58 IU/L IU/L (38 - 126) Troponin I < 0.012 ng/mL ng/mL (0 - 0.034) Total Protein 7.4 g/dL g/dL (6.3 - 8.2) Albumin 3.9 g/dL g/dL (3.5 - 5.0) Urine Color OSKAR Urine Appearance MODERATELY TURBID Urine pH 6.0 (5.0 - 7.5) Ur Specific Clayton 1.028 (1.002 - 1.030) Urine Protein 3+ H Urine Ketones 1+ H Urine Blood 3+ H Urine Nitrate NEGATIVE Urine Bilirubin NEGATIVE Urine Urobilinogen NEGATIVE EU EU Ur Leukocyte Esterase NEGATIVE Urine RBC 50-182 /hpf H /hpf Urine WBC 25-50 /hpf H /hpf Ur Epithelial Cells TRACE /lpf /lpf Urine Bacteria TRACE /hpf H /hpf Hyaline Casts 25-50 /lpf H /lpf Urine Mucus 4+ /lpf H /lpf Urine Glucose 2+ H - Time Spent With Patient Time Spent With Patient: 35 minutes of critical care time Physical Exam - Physical Exam General Appearance: No alert EENT: PERRL/EOMI, ET tube Neck: other (Soft C collar) Respiratory: crackles (Right base), No respiratory distress, No wheezing Cardiac/Chest: normal peripheral pulses, regular rate, rhythm, systolic murmur Abdomen: normal bowel sounds, non-tender, soft Male Genitalia: deferred Rectal: deferred Extremities: normal range of motion, non-tender, normal inspection, normal capillary refill ICD10 Worksheet Patient Problems: Problems Problem Status Onset Fusion of spine of cervical region Acute
[2017-03-19 09:42] LABS: BASE EXCESS 2.6 mEq/L (-2.5-2.5); BICARBONATE 26 mEq/L (22-26); MEASURED OXYGEN SATURATION 95 % (92-95); PCO2 35 mmHg (34-38); PO2 70 mmHg (65-75); TCO2 27 mEq/L (23-27)
[2017-03-19 09:43] LABS: END TIDAL CO2 29; PATIENT RATE 25; PRESSURE SUPPORT 10; SIMV YES
[2017-03-19 09:44] LABS: O2 CONCENTRATIION 50 % (0-100); P/F RATIO 140 RATIO
[2017-03-19] MEDS: FAMOTIDINE 20 MG/NACL 50 ML IV SCH ×2 (09:58→21:00)
[2017-03-19] MEDS: ENOXAPARIN 40 MG/0.4 ML SYR SC SCH (10:01)
[2017-03-19] MEDS: POLYETHYLENE GLYCOL 3350 17 GM PKT PO SCH ×2 (10:05→14:20)
[2017-03-19 10:56] LABS: ANION GAP 9 mEq/L (8-16); CALCIUM 8.2 mg/dL (8.5-10.4); CARBON DIOXIDE 27 mEq/l (22-31); CHLORIDE 98 mEq/L (97-110); CREATININE 0.7 mg/dL (0.7-1.3); GLOMERULAR FILTRATION RATE > 60; GLUCOSE 99 mg/dL (70-100); POTASSIUM 4.2 mEq/L (3.5-5.2); SODIUM 134 mEq/L (134-144)
[2017-03-19] MEDS ORDERED: ACETAMINOPHEN 325 MG TAB TUBE PRN (11:03)
[2017-03-19 11:08] LABS: TROPONIN I 0.108 ng/mL (0-0.034)
[2017-03-19] MEDS ORDERED: ONDANSETRON DISINTEGRATING 4 MG TAB TUBE PRN (11:08)
[2017-03-19] MEDS ORDERED: LACTULOSE 20 GM/30 ML UDCUP TUBE PRN (11:14)
[2017-03-19] MEDS ORDERED: DIAZEPAM 5 MG TAB TUBE PRN (11:15)
[2017-03-19] MEDS ORDERED: PROPRANOLOL HCL 20 MG TAB TUBE PRN (11:16)
[2017-03-19] MEDS ORDERED: MAGNESIUM HYDROXIDE 30 ML UDCUP TUBE PRN (11:16)
[2017-03-19] MEDS ORDERED: clonazePAM 0.5 MG TAB TUBE PRN (11:17)
[2017-03-19] MEDS: SENNOSIDES/DOCUSATE SODIUM TAB PO SCH (12:54)
[2017-03-19] MEDS: TAMSULOSIN HCL 0.4 MG CAP PO SCH ×2 (12:54→14:21)
[2017-03-19] MEDS: GABAPENTIN 300 MG CAP PO SCH (12:54)
--- NOTE | 2017-03-19 13:39 | ECHO ---
[id number] + + [address] : : [place] [address] : : [phone] + + Adult Echocardiographic Report + ---------+ :Name: KRISTA MORROWradhaanabel Date: 03/19/2017 09:33 AM : : Hospital Admission Number: [id number] Loca tion: 241: :: 1945 Gender: Male Height: 73 i n : :Age: 71 yrs Race: WH Weight: 252 lb : :Reason For Study: Eval LV Fx : : BSA: 2.4 met ers2 : :History: Post Op neck surgery. Now intubated, aspirational : :pneumonia. Respiratory failure. : + ---------+ MMode/2D Measurements \T\ Calculations IVSd: 0.94 cm RVDd: 3.1 cm FS: 38.3 % Ao root diam: 3.3 cm LVPWd: 1.1 cm LVIDd: 3.8 cm EDV(Teich): 61.0 ml ACS: 1.7 cm LVIDs: 2.3 cm ESV(Teich): 18.7 ml EF(Teich): 69.3 % Normal Measurement Values: + + :LVIDd (3.5-5.7cm) IVSd (0.6-1.1cm) LVPWd (0.6-1.1cm) Aortic Root (2.0-3.7cm)Left Atrium (1.5-4.0cm): :LV Vol(d) (76-115ml) LV Vol(s) (29-48ml) Ejec Fraction (50-65%)PV Ras (0.6- 1.2m/s) TV Ras (0.4-1.0m/s) : :MV E Ras (0.8-1.0m/s)MV A Ras (0.3-1.0m/s)LVOT Ras (0.7-1.2m/s) Asc Ao Ras ( 0.9-1.8m/s) : + + Doppler Measurements \T\ Calculations MV E max ras: Ao V2 max: LV V1 max: PA V2 max: 69.1 cm/sec 171.0 cm/sec 138.2 cm/sec 115.4 cm/sec MV A max ras: Ao max PG: LV V1 max PG: PA max P.8 cm/sec 11.7 mmHg 7.6 mmHg 5.3 mmHg MV E/A: 0.77 TR max ras: 264.7 cm/sec TR max P.0 mmHg RAP systole: 5.0 mmHg RVSP(TR): 33.0 mmHg Left Ventricle The left ventricle is normal in size. There is normal left ventricular wall thickness. The left ventricular ejection fraction is normal. The left ventricle is hyperdynamic. Ejection Fraction = 69%. Grade I diastolic dysfunction with elevated LV filling pressures. The left ventricular wall motion is normal. Right Ventricle The right ventricle is normal size. The right ventricular systolic function is borderline reduced. Atria The left atrial size is normal. Right atrial size is normal. Mitral Valve There is mild mitral annular calcification. There is no mitral valve stenosis. There is trace mitral regurgitation. Tricuspid Valve Normal tricuspid valve. There is trace to mild tricuspid regurgitation. Right ventricular systolic pressure is normal. Aortic Valve The aortic valve is normal in structure and function. There is no aortic stenosis. There is no aortic insufficiency. Pulmonic Valve The pulmonic valve is normal in structure and function. There is no pulmonic valvular regurgitation. Great Vessels The aortic root is normal size. Pericardium/Pleural There is no pericardial effusion. Conclusion A complete two-dimensional transthoracic echocardiogram was performed (2D, M-mode, Doppler and color flow Doppler). The left ventricular ejection fraction is normal. The left ventricle is hyperdynamic. Ejection Fraction = 69%. The left ventricular wall motion is normal. Grade I diastolic dysfunction with elevated LV filling pressures The right ventricle is normal size and systolic function There is trace mitral regurgitation. There is trace to mild tricuspid regurgitation. Right ventricular systolic pressure is normal. The aortic valve is normal in structure and function. There is no pericardial effusion. No prior echo Final Reading Physician: Dr Carol Ervin electronically signed on 03/19/2017 01:37 PM Ordering Physician: Praful Meyers Performed By: Royal Dorado, CS
[2017-03-19] MEDS: GABAPENTIN 300 MG CAP TUBE SCH ×2 (14:21→17:26)
[2017-03-19] MEDS: PROPOFOL/EMULSION 100 ML IV SCH (17:17)
[2017-03-19] MEDS: ACETAMINOPHEN 650 MG SUPP PR PRN ×2 (17:20→21:00)
[2017-03-19] MEDS: SENNOSIDES 17.6 MG/10 ML UDL TUBE SCH (17:26)
[2017-03-19] MEDS ORDERED: ATORVASTATIN CALCIUM 20 MG TAB TUBE SCH (18:00)
[2017-03-19] MEDS: CHLORHEXIDINE GLUCONATE 15 ML UDL PO SCH (20:59)
[2017-03-20 05:03] LABS: HEMATOCRIT 34.5 % (40.0-51.0); HEMOGLOBIN 11.8 g/dL (13.7-17.5); MEAN CELL HEMOGLOBIN 31.9 pg (27.9-34.1); MEAN CELL HEMOGLOBIN CONCENTR. 34.2 g/dL (32.4-36.7); MEAN CELL VOLUME 93.2 fL (81.5-99.8); RED BLOOD CELL COUNT 3.7 10^6/uL (4.40-6.38); RED CELL DISTRIBUTION WIDTH 12.3 % (11.5-15.2)
[2017-03-20 05:25] LABS: ANION GAP 6 mEq/L (8-16); CALCIUM 7.9 mg/dL (8.5-10.4); CARBON DIOXIDE 27 mEq/l (22-31); CHLORIDE 103 mEq/L (97-110); CREATININE 0.7 mg/dL (0.7-1.3); GLOMERULAR FILTRATION RATE > 60; GLUCOSE 100 mg/dL (70-100); MAGNESIUM 2.3 mg/dL (1.6-2.3); POTASSIUM 3.7 mEq/L (3.5-5.2); SODIUM 136 mEq/L (134-144)
[2017-03-20 05:55] LABS: BASE EXCESS 2.6 mEq/L (-2.5-2.5); BICARBONATE 26 mEq/L (22-26); IONIZED CALCIUM 1.14 MMOL/L (1.12-1.30); MEASURED OXYGEN SATURATION 97 % (92-95); PCO2 38 mmHg (34-38); PO2 84 mmHg (65-75); TCO2 27 mEq/L (23-27)
[2017-03-20 05:56] LABS: O2 CONCENTRATIION 40 % (0-100); P/F RATIO 210 RATIO; PATIENT RATE 14; PIP 26; PRESSURE SUPPORT 10; SIMV YES
[2017-03-20 05:57] LABS: I-TIME 0.2 SECS
[2017-03-20] MEDS: PROPOFOL/EMULSION 100 ML IV SCH (05:59)
[2017-03-20] MEDS ORDERED: POTASSIUM Cl (KCl) 50 ML IV ONE (07:29)
--- NOTE | 2017-03-20 08:17 | NEUSURGPN ---
Date of Surgery: 03/15/17 Post Op Day: 5 Assessment/Plan: Assessment: 71 yo male POD #5 s/p C3-5 ACDF and posterior fusion C3-5 Plan: -acute urinary retention now with Bhatia-Dr Lerma wants to continue with this for 1 week -respiratory distress requiring intubation/transfer to SDU -strength equal throughout to BUE/BLE -recent CT neck not impressive for prevertebral swelling -CPM in SDU -Vent per intensivists -incidental left pulmonary nodule. CT chest recommended per rad report. We will defer this to intensivists. -call with any questions or concerns -discussed with Dr. Lerma Subjective: Awake and alert, follows commands. No new complaints or concerns per RN Objective: intubated, awake to verbal follows commands x 4 5/5 BUE/BLE neck is soft and supple JPs in place with minimal output Neuro Check Frequency: per routine Urinary Catheter in Place: Yes Urinary Catheter Indication: Surgical Requirement (urine retention) Catheter Insertion Date: 03/15/17 - Physician Discussed Patient with : Stephanie Neurosurgery Physical Exam - Vitals, I&O, Labs I and O 03/19/17 03/20/17 03/21/17 05:59 05:59 05:59 Intake Total 4375.0 2095.0 Output Total 2910 1819.5 Balance 1465.0 275.5 Weight 114.4 kg Intake: Oral (ml) 0 IV Intake (ml) 3377 6 IV Infused (ml) 998.0 2089.0 Albumin 5% 500 ml @ As 500 Directed IV ONCE ONE Rx#: [id number] NS W/ 20 KCl/L 1,000 ml @ 460 983 75 mls/hr IV CONT YASMANY Rx #:[id number] Norepinephrine/Ns 500 ml 24.5 806 @ Per Protocol IV CONT YASMANY Rx#:[id number] Propofol/Emulsion 100 ml 9.5 230.2 @ Per Protocol IV CONT YASMANY Rx#:[id number] fentaNYL/NACL 100 ml @ 4 69.8 Per Protocol IV CONT YASMANY Rx#:[id number] Output: Urine (ml) 2900 1800 Catheter 2900 1800 Wound Drainage (ml) 10 19.5 Anterior Neck Sabino 5 7 [place] Posterior Neck Sabino 5 12.5 [place] Microbiology 03/19/17 04:19 - Final Sputum, Induced/Suctioned Vital Signs Temp Pulse Resp BP Pulse Ox 37.3 C 61 14 116/57 L 98 03/20/17 06:00 03/20/17 07:00 03/20/17 07:00 03/20/17 07:00 03/20/17 07:00 Laboratory Results 03/20/17 04:45 03/20/17 04:45 ICD10 Worksheet Patient Problems: Problems Problem Status Onset Fusion of spine of cervical region Acute
--- NOTE | 2017-03-20 08:43 | PDINTPN ---
Cruise Consultant Progress Note Assessment/Plan: Assessment/Plan: * Status post anterior and posterior C-spine surgery * Acute hypercarbic respiratory failure-stable on mechanical ventilation -will assess for extubation today -will perform a tube occlusion test to assess airway patency * Right lower lobe pneumonia-likely aspiration. Radiographically and clinically improved -continue ertapenem * Hypotension-resolved * Sepsis * VTE prophylaxis * Stress ulcer prophylaxis * Nutrition-we will start tube feeds 40 minutes of critical care time spent with patient Case discussed with nursing, surgery and RT Subjective: Awake and alert, continues on mechanical ventilation. Objective: Vital Signs Temp Pulse Resp BP Pulse Ox 37.3 C 61 14 116/57 L 98 03/20/17 06:00 03/20/17 07:00 03/20/17 07:00 03/20/17 07:00 03/20/17 07:00 Microbiology 03/19/17 04:19 - Final Sputum, Induced/Suctioned Laboratory Results 03/20/17 04:45 03/20/17 04:45 03/19/17 03/20/17 03/21/17 05:59 05:59 05:59 Intake Total 4375.0 2095.0 Output Total 2910 1819.5 Balance 1465.0 275.5 Laboratory Results 03/20/17 04:45 03/20/17 04:45 03/20/17 05:49 Patient Temperature 37.0 DEGREES DEGREES pCO2 38 mmHg mmHg (34 - 38) pO2 84 mmHg H mmHg (65 - 75) Total CO2 27 mEq/L mEq/L (23 - 27) ABG pH 7.45 (7.35 - 7.45) ABG PO2/FiO2 Ratio 210 RATIO RATIO ABG O2 Saturation 97 % H % (92 - 95) ABG Base Excess 2.6 mEq/L H mEq/L (-2.5 - 2.5) O2 Concentration % 40 % % Actual Respiration Rate 14 Set Respiration Rate 14 SIMV YES Inspiratory Time 0.2 SECS SECS Tidal Volume 700 PEEP 10 Peak Inspir Pressure 26 Pressure Support 10 CHEST X-RAY-read by myself. Endotracheal tube in good position. Improved right lower lobe infiltrate. - Time Spent With Patient Time Spent With Patient: 40 minutes ICD10 Worksheet Patient Problems: Problems Problem Status Onset Fusion of spine of cervical region Acute
[2017-03-20] MEDS: ENOXAPARIN 40 MG/0.4 ML SYR SC SCH (08:53)
[2017-03-20] MEDS: FAMOTIDINE 20 MG/NACL 50 ML IV SCH (08:53)
[2017-03-20] MEDS: CHLORHEXIDINE GLUCONATE 15 ML UDL PO SCH (08:55)
[2017-03-20] MEDS: GABAPENTIN 300 MG CAP TUBE SCH (08:57)
[2017-03-20] MEDS: SENNOSIDES 17.6 MG/10 ML UDL TUBE SCH (08:57)
[2017-03-20 09:35] LABS: BICARBONATE 26 mEq/L (22-26); MEASURED OXYGEN SATURATION 93 % (92-95); PCO2 37 mmHg (34-38); PO2 65 mmHg (65-75); TCO2 27 mEq/L (23-27)
[2017-03-20 09:36] LABS: CPAP YES; END TIDAL CO2 30; PATIENT RATE 21
[2017-03-20 09:37] LABS: O2 CONCENTRATIION 40 % (0-100); P/F RATIO 163 RATIO; PRESSURE SUPPORT 7
--- NOTE | 2017-03-20 11:14 | HOSPPROG ---
Hospitalist Progress Note Assessment/Plan: #Acute hypercarbic resp failure: extubated today. Likely aspiration, opioids, airway edema - #Atrial fibrillation: normal TTE. Did not respond to PO dilt. Start IV amio with soft BPs. CHADS-VASC score 1. Hold off anticoagulation bc likely due to acute illness #Indeterminate troponin: suspect due to demand. No ischemic EKG changes. Echo without wall motion abnormalities #Sepsis: resolved. Due to PNA. #Aspiration PNA: Ertapenem #Cervical stenosis: POD #5 C3-5 ACDF, posterior fusion C3-5 #Chronic opioid dependency: due to stenosis. Resume oral opioids #Anxiety: Klonopin PRN #Leukocytosis: stress inflammation/aspiration. Nearly resolved. Cultures pending #Diet: regular diet if passes swallow #DVT ppx:SCDs #Disp: warrants ICU admission requiring ventilation, IV abx Subjective: extubated today Objective: Vital Signs Temp Pulse Resp BP Pulse Ox 37.6 C 114 H 25 H 125/74 H 98 03/20/17 08:00 03/20/17 10:00 03/20/17 10:00 03/20/17 10:00 03/20/17 10:00 Microbiology 03/19/17 04:19 - Final Sputum, Induced/Suctioned Laboratory Results 03/20/17 04:45 03/20/17 04:45 03/19/17 03/20/17 03/21/17 05:59 05:59 05:59 Intake Total 4375.0 2095.0 Output Total 2910 1819.5 Balance 1465.0 275.5 - Physical Exam Constitutional: no apparent distress Eyes: PERRL Ears, Nose, Mouth, Throat: moist mucous membranes, hearing normal Cardiovascular: irregularly irregular, edema (trace pedal edema) Respiratory: no respiratory distress, no rales or rhonchi Gastrointestinal: normoactive bowel sounds, soft, non-tender abdomen Genitourinary: no bladder fullness Skin: warm Musculoskeletal: full muscle strength Neurologic: AAOx3, CN II-XII Intact Psychiatric: interacting appropriately Lymph, Heme, Immunologic: no cervical LAD ICD10 Worksheet Patient Problems: Problems Problem Status Onset Fusion of spine of cervical region Acute
[2017-03-20] MEDS ORDERED: DILTIAZEM 30 MG TAB PO SCH (11:15)
[2017-03-20] MEDS ORDERED: oxyCODONE IR 5 MG TAB PO PRN (11:21)
[2017-03-20] MEDS: DILTIAZEM 30 MG TAB PO SCH ×3 (11:58→23:29)
[2017-03-20] MEDS ORDERED: AMIODARONE HCL 100 ML IV ONE (12:26)
[2017-03-20] MEDS ORDERED: AMIODARONE HCL 200 ML IV ONE (12:26)
[2017-03-20] MEDS ORDERED: LACTULOSE 20 GM/30 ML UDCUP PO PRN (15:32)
[2017-03-20] MEDS ORDERED: PROPRANOLOL HCL 20 MG TAB PO PRN (15:33)
[2017-03-20] MEDS ORDERED: MAGNESIUM HYDROXIDE 30 ML UDCUP PO PRN (15:33)
[2017-03-20] MEDS ORDERED: ONDANSETRON DISINTEGRATING 4 MG TAB PO PRN (15:34)
[2017-03-20] MEDS: HYDROCODONE/APAP 5/325 TAB PO PRN ×3 (15:48→20:26)
[2017-03-20] MEDS: ATORVASTATIN CALCIUM 20 MG TAB PO SCH (16:41)
[2017-03-20] MEDS: GABAPENTIN 300 MG CAP PO SCH ×2 (16:41→21:32)
[2017-03-20] MEDS ORDERED: AMIODARONE A.FIB-18HR INFSN (ORDER 3/3) IV ONE (19:00)
[2017-03-20] MEDS: DIAZEPAM 5 MG TAB PO PRN (20:25)
[2017-03-20] MEDS: ERTAPENEM 1 GM in NS 100 ML IV SCH (21:31)
[2017-03-20] MEDS: SENNOSIDES/DOCUSATE SODIUM TAB PO SCH (21:31)
[2017-03-21] MEDS: clonazePAM 0.5 MG TAB PO PRN ×2 (01:07→17:49)
[2017-03-21] MEDS: HYDROCODONE/APAP 5/325 TAB PO PRN ×4 (02:31→20:56)
[2017-03-21] MEDS: DILTIAZEM 30 MG TAB PO SCH (06:05)
[2017-03-21 06:15] LABS: IONIZED CALCIUM 1.16 MMOL/L (1.12-1.30)
[2017-03-21 06:23] LABS: HEMATOCRIT 36.5 % (40.0-51.0); HEMOGLOBIN 12.3 g/dL (13.7-17.5); MEAN CELL HEMOGLOBIN 31.9 pg (27.9-34.1); MEAN CELL HEMOGLOBIN CONCENTR. 33.7 g/dL (32.4-36.7); MEAN CELL VOLUME 94.8 fL (81.5-99.8); RED BLOOD CELL COUNT 3.85 10^6/uL (4.40-6.38); RED CELL DISTRIBUTION WIDTH 12.2 % (11.5-15.2)
[2017-03-21 06:31] LABS: ANION GAP 7 mEq/L (8-16); CALCIUM 8.1 mg/dL (8.5-10.4); CARBON DIOXIDE 29 mEq/l (22-31); CHLORIDE 103 mEq/L (97-110); CREATININE 0.7 mg/dL (0.7-1.3); GLOMERULAR FILTRATION RATE > 60; GLUCOSE 103 mg/dL (70-100); POTASSIUM 3.7 mEq/L (3.5-5.2); SODIUM 139 mEq/L (134-144)
--- NOTE | 2017-03-21 08:46 | PDINTPN ---
Validation Specialist Progress Note Assessment/Plan: Assessment/Plan: * Status post anterior and posterior C-spine surgery * Acute hypercarbic respiratory failure-stable off mechanical ventilation * Right lower lobe pneumonia-likely aspiration. Radiographically and clinically improved -continue ertapenem * Hypotension-resolved * Sepsis * VTE prophylaxis * Stress ulcer prophylaxis * Nutrition-we will start tube feeds * Disposition-will transfer to [facility] surg Subjective: Sitting up in chair eating breakfast. Feels markedly better. He is less breathless and has diminished cough. Objective: Vital Signs Temp Pulse Resp BP Pulse Ox 36.9 C 66 16 118/59 L 95 03/21/17 04:00 03/21/17 06:00 03/21/17 06:00 03/21/17 06:00 03/21/17 06:00 Microbiology 03/19/17 04:19 - Final Sputum, Induced/Suctioned Sputum Culture - Final Britney Albicans Laboratory Results 03/21/17 05:50 03/21/17 05:50 03/20/17 03/21/17 03/22/17 05:59 05:59 05:59 Intake Total 2095.0 1391.4 725 Output Total 1819.5 1753 650 Balance 275.5 -361.6 75 Physical Exam - Physical Exam General Appearance: alert, no apparent distress EENT: PERRL/EOMI, normal ENT inspection Neck: non-tender, full range of motion, supple, normal inspection Respiratory: crackles (Bases), No normal breath sounds, No respiratory distress , No wheezing Cardiac/Chest: normal peripheral pulses, regular rate, rhythm, systolic murmur Peripheral Pulses: 2+: carotid (R), carotid (L), femoral (R), femoral (L), dorsalis-pedis (R), dorsalis-pedis (L) Abdomen: normal bowel sounds, non-tender, soft Male Genitalia: deferred Rectal: deferred Skin: normal color, warm/dry Extremities: normal range of motion, non-tender, normal inspection, normal capillary refill Neuro/Psych: no motor/sensory deficits, alert, normal mood/affect, oriented x 3 ICD10 Worksheet Patient Problems: Problems Problem Status Onset Fusion of spine of cervical region Acute
--- NOTE | 2017-03-21 09:03 | HOSPPROG ---
Hospitalist Progress Note Assessment/Plan: #Acute hypercarbic resp failure: extubated 03/20. Likely aspiration, opioids, airway edema #Atrial fibrillation: normal TTE. Did not respond to PO dilt. Start IV amio with soft BPs. CHADS-VASC score 1. Hold off anticoagulation bc likely due to acute illness #Indeterminate troponin: suspect due to demand. No ischemic EKG changes. Echo without wall motion abnormalities #Sepsis: resolved. Due to PNA. #Aspiration PNA: Ertapenem #Cervical stenosis: POD #5 C3-5 ACDF, posterior fusion C3-5 #Chronic opioid dependency: due to stenosis. Resume oral opioids #Anxiety: Klonopin PRN #Leukocytosis: stress inflammation/aspiration. Nearly resolved. Cultures pending #Diet: regular diet if passes swallow #DVT ppx:SCDs #Disp: transfer to floor Subjective: pain controlled. Converted to NSR. Objective: Vital Signs Temp Pulse Resp BP Pulse Ox 36.9 C 66 16 118/59 L 95 03/21/17 04:00 03/21/17 06:00 03/21/17 06:00 03/21/17 06:00 03/21/17 06:00 Microbiology 03/19/17 04:19 - Final Sputum, Induced/Suctioned Sputum Culture - Final Britney Albicans Laboratory Results 03/21/17 05:50 03/21/17 05:50 03/20/17 03/21/17 03/22/17 05:59 05:59 05:59 Intake Total 2095.0 1391.4 725 Output Total 1819.5 1753 650 Balance 275.5 -361.6 75 ICD10 Worksheet Patient Problems: Problems Problem Status Onset Fusion of spine of cervical region Acute
[2017-03-21] MEDS: SENNOSIDES/DOCUSATE SODIUM TAB PO SCH ×2 (09:13→20:55)
[2017-03-21] MEDS: GABAPENTIN 300 MG CAP PO SCH ×3 (09:13→20:56)
[2017-03-21] MEDS: ENOXAPARIN 40 MG/0.4 ML SYR SC SCH (09:14)
--- NOTE | 2017-03-21 10:47 | NEUSURGPN ---
Assessment/Plan: Assessment: 71 yo male POD #6 s/p C3-5 ACDF and posterior fusion C3-5 Plan: -acute urinary retention now with Bhatia-Dr Lerma wants to continue with this for 1 week -respiratory distress requiring intubation/transfer to SDU- now extubated and doing much better -strength equal throughout to BUE/BLE -recent CT neck not impressive for prevertebral swelling -Spoke with analog ic design engineer and will most likely transfer out of SDU to floor today -call with any questions or concerns -Change posterior dressing today -discussed with Dr. Lerma Subjective: Patient doing better this morning. Tried to eat soft solids but unable to swallow, so on thin liquids for now. Pain managed well on current medication regimen. Objective: Extubated, sitting up in chair follows commands x 4 5/5 BUE/BLE neck is soft and supple Incision- c/d/i Catheter Insertion Date: 03/15/17 - Physician Discussed Patient with : Stephanie Neurosurgery Physical Exam - Vitals, I&O, Labs I and O 03/20/17 03/21/17 03/22/17 05:59 05:59 05:59 Intake Total 2095.0 1391.4 725 Output Total 1819.5 1753 650 Balance 275.5 -361.6 75 Intake: Oral (ml) 480 240 IV Intake (ml) 6 157 220 IV Infused (ml) 2089.0 754.4 265 Amiodarone HCl 200 ml @ 212 33.333 mls/hr IV ONCE ONE Rx#:[id number] Amiodarone HCl 540 mg In 265 D5w 300 ml @ 16.667 mls/ hr IV ONCE ONE Rx#: [id number] NS W/ 20 KCl/L 1,000 ml @ 983 75 mls/hr IV CONT YASMANY Rx #:[id number] Norepinephrine/Ns 500 ml 806 531 @ Per Protocol IV CONT YASMANY Rx#:[id number] Propofol/Emulsion 100 ml 230.2 @ Per Protocol IV CONT YASMANY Rx#:[id number] fentaNYL/NACL 100 ml @ 69.8 11.4 Per Protocol IV CONT YASMANY Rx#:[id number] Output: Urine (ml) 1800 1750 650 Catheter 1800 1750 650 Wound Drainage (ml) 19.5 3 Anterior Neck Sabino 7 0 [place] Posterior Neck Sabino 12.5 3 [place] Other: Intake Quantity Yes Sufficient Number of Stools Catheter 1 Microbiology 03/19/17 04:19 - Final Sputum, Induced/Suctioned Sputum Culture - Final Britney Albicans Vital Signs Temp Pulse Resp BP Pulse Ox 36.9 C 69 18 117/55 L 95 03/21/17 04:00 03/21/17 08:00 03/21/17 08:00 03/21/17 08:00 03/21/17 08:00 Laboratory Results 03/21/17 05:50 03/21/17 05:50 ICD10 Worksheet Patient Problems: Problems Problem Status Onset Fusion of spine of cervical region Acute
--- NOTE | 2017-03-21 11:29 | HOSPPROG ---
Hospitalist Progress Note Assessment/Plan: #Acute hypercarbic resp failure: extubated 03/20. Likely aspiration, opioids, airway edema #Atrial fibrillation: normal TTE. Converted to NSR last night with amiodarone. CHADS-VASC score 1. Hold off anticoagulation bc likely due to acute illness #Indeterminate troponin: suspect due to demand. No ischemic EKG changes. Echo without wall motion abnormalities #Leukocytosis: afebrile. Blood culture NGTD. Pyuria on UA. Culture pending #Sepsis: resolved. Due to PNA. #Aspiration PNA: Ertapenem Day 3 #Cervical stenosis: POD #6 C3-5 ACDF, posterior fusion C3-5 #Chronic opioid dependency: due to stenosis. Resume oral opioids #Anxiety: Klonopin PRN #Diet: regular #DVT ppx: SCDs #Disp: transfer to floor Subjective: pain controlled. No dysuria, SOB Objective: Vital Signs Temp Pulse Resp BP Pulse Ox 36.9 C 69 18 117/55 L 95 03/21/17 04:00 03/21/17 08:00 03/21/17 08:00 03/21/17 08:00 03/21/17 08:00 Microbiology 03/19/17 04:19 - Final Sputum, Induced/Suctioned Sputum Culture - Final Britney Albicans Laboratory Results 03/21/17 05:50 03/21/17 05:50 03/20/17 03/21/17 03/22/17 05:59 05:59 05:59 Intake Total 2095.0 1391.4 725 Output Total 1819.5 1753 650 Balance 275.5 -361.6 75 - Physical Exam Constitutional: no apparent distress Eyes: PERRL Ears, Nose, Mouth, Throat: moist mucous membranes, hearing normal Cardiovascular: regular rate and rhythym, no murmur, rub, or gallop Respiratory: no respiratory distress, rhonchi Gastrointestinal: normoactive bowel sounds, soft, non-tender abdomen Genitourinary: no bladder fullness, no bladder tenderness Skin: warm Musculoskeletal: full muscle strength, other (soft collar in place. Neck surgical incision C/D/I) Neurologic: AAOx3, CN II-XII Intact Psychiatric: interacting appropriately Lymph, Heme, Immunologic: no cervical LAD ICD10 Worksheet Patient Problems: Problems Problem Status Onset Fusion of spine of cervical region Acute
[2017-03-21] MEDS: ATORVASTATIN CALCIUM 20 MG TAB PO SCH (17:49)
[2017-03-21] MEDS: TAMSULOSIN HCL 0.4 MG CAP PO SCH (17:49)
[2017-03-21] MEDS: ERTAPENEM 1 GM in NS 100 ML IV SCH (20:59)
[2017-03-22] MEDS: clonazePAM 0.5 MG TAB PO PRN (00:28)
[2017-03-22] MEDS: HYDROCODONE/APAP 5/325 TAB PO PRN ×4 (00:28→19:35)
[2017-03-22] MEDS: LORazepam 2 MG/ML INJ IVP PRN (03:02)
[2017-03-22 06:25] LABS: IONIZED CALCIUM 1.09 MMOL/L (1.12-1.30)
[2017-03-22 06:53] LABS: ANION GAP 10 mEq/L (8-16); CALCIUM 8.3 mg/dL (8.5-10.4); CARBON DIOXIDE 29 mEq/l (22-31); CHLORIDE 100 mEq/L (97-110); CREATININE 0.6 mg/dL (0.7-1.3); GLOMERULAR FILTRATION RATE > 60; GLUCOSE 107 mg/dL (70-100); POTASSIUM 3.7 mEq/L (3.5-5.2); SODIUM 139 mEq/L (134-144)
--- NOTE | 2017-03-22 08:55 | NEUSURGPN ---
Assessment/Plan: 71 yo male POD #7 s/p C3-5 ACDF and posterior fusion C3-5 Plan: -acute urinary retention now with Bhatia-Dr Lerma wants to continue with this for 1 week -respiratory distress requiring intubation/transfer to SDU- now extubated and doing much better. Appreciate medicien recommendations, currently on Ertapenem -strength equal throughout to BUE/BLE -recent CT neck not impressive for prevertebral swelling -PT/OT -call with any questions or concerns -Dispo planning. SNF vs C, will need to see how he progresses with therapies. -DVT prophx: TEDs, SCDs, Lovenox -discussed with Dr. Lerma Subjective: Tolerating PO okay, posterior neck pain tolerable with medications. Denies any SOB or chest pain Objective: NAD A&OX3 follows commands x 4 5/5 BUE/BLE neck is soft and supple Bilateral Incision- c/d/i Catheter Insertion Date: 03/15/17 - Physician Discussed Patient with : Stephanie Neurosurgery Physical Exam - Vitals, I&O, Labs I and O 03/21/17 03/22/17 03/23/17 05:59 05:59 05:59 Intake Total 1391.4 1025 Output Total 1753 1675 Balance -361.6 -650 Intake: Oral (ml) 480 540 IV Intake (ml) 157 220 IV Infused (ml) 754.4 265 Amiodarone HCl 200 ml @ 212 33.333 mls/hr IV ONCE ONE Rx#:[id number] Amiodarone HCl 540 mg In 265 D5w 300 ml @ 16.667 mls/ hr IV ONCE ONE Rx#: [id number] Norepinephrine/Ns 500 ml 531 @ Per Protocol IV CONT YASMANY Rx#:[id number] fentaNYL/NACL 100 ml @ 11.4 Per Protocol IV CONT YASMANY Rx#:[id number] Output: Urine (ml) 1750 1675 Catheter 1750 1650 Toilet 25 Wound Drainage (ml) 3 Anterior Neck Sabino 0 [place] Posterior Neck Sabino 3 [place] Other: Intake Quantity Yes Sufficient Number of Voids Toilet 1 Number of Stools Catheter 1 Toilet 1 Bladder Scan Volume (ml) Catheter 286 Toilet 730 Microbiology 03/19/17 04:19 - Final Sputum, Induced/Suctioned Sputum Culture - Final Britney Albicans Vital Signs Temp Pulse Resp BP Pulse Ox 37.1 C 80 16 106/74 92 03/22/17 08:00 03/22/17 08:00 03/22/17 08:00 03/22/17 08:00 03/22/17 08:00 Laboratory Results 03/21/17 05:50 03/22/17 06:00 ICD10 Worksheet Patient Problems: Problems Problem Status Onset Fusion of spine of cervical region Acute
[2017-03-22] MEDS: SENNOSIDES/DOCUSATE SODIUM TAB PO SCH ×2 (09:54→20:45)
[2017-03-22] MEDS: TAMSULOSIN HCL 0.4 MG CAP PO SCH (09:54)
[2017-03-22] MEDS: GABAPENTIN 300 MG CAP PO SCH ×3 (09:54→19:36)
[2017-03-22] MEDS: ENOXAPARIN 40 MG/0.4 ML SYR SC SCH (09:57)
[2017-03-22] MEDS: DIAZEPAM 5 MG TAB PO PRN ×2 (10:05→19:36)
[2017-03-22 13:34] LABS: CALCIUM 8.4 mg/dL (8.5-10.4); MAGNESIUM 2.3 mg/dL (1.6-2.3)
[2017-03-22] MEDS ORDERED: ZOLPIDEM TARTRATE 5 MG TAB PO PRN (15:08)
--- NOTE | 2017-03-22 15:10 | HOSPPROG ---
Hospitalist Progress Note Assessment/Plan: #Acute hypercarbic resp failure: extubated 03/20. Likely aspiration, opioids, airway edema #Atrial fibrillation: now in NSR with amiodarone. CHADS-VASC score 1. Hold off anticoagulation bc likely due to acute illness #Indeterminate troponin: suspect due to demand. No ischemic EKG changes. Echo without wall motion abnormalities #Sepsis: resolved. Due to PNA. #Aspiration PNA: Ertapenem Day 4/5 #Cervical stenosis: POD #7 C3-5 ACDF, posterior fusion C3-5 #Chronic opioid dependency: due to stenosis. Resume oral opioids #Anxiety: Klonopin PRN. Would not increase this med with opioids and Valium; risked for delirium #Leukocytosis: stress inflammation/aspiration. Nearly resolved. Cultures pending #pyuria: no sxs. Culture pending #Diet: regular diet if passes swallow #DVT ppx:SCDs #Disp: transfer to floor Subjective: no CP or SOB. "Want to jump out of skin" Objective: Vital Signs Temp Pulse Resp BP Pulse Ox 37.1 C 80 16 106/74 92 03/22/17 08:00 03/22/17 08:00 03/22/17 08:00 03/22/17 08:00 03/22/17 08:00 Laboratory Results 03/21/17 05:50 03/22/17 06:00 03/21/17 03/22/17 03/23/17 05:59 05:59 05:59 Intake Total 1391.4 1025 Output Total 1753 1675 Balance -361.6 -650 - Physical Exam Constitutional: no apparent distress Eyes: PERRL Ears, Nose, Mouth, Throat: moist mucous membranes, hearing normal Cardiovascular: regular rate and rhythym, no murmur, rub, or gallop Respiratory: rhonchi Gastrointestinal: normoactive bowel sounds, soft, non-tender abdomen, no palpable masses Genitourinary: no bladder fullness Skin: warm Musculoskeletal: full muscle strength, other (soft c-collar in place) Neurologic: AAOx3 Psychiatric: interacting appropriately, anxious ICD10 Worksheet Patient Problems: Problems Problem Status Onset Fusion of spine of cervical region Acute
[2017-03-22] MEDS: ACETAMINOPHEN 325 MG TAB PO PRN (15:24)
[2017-03-22] MEDS: ATORVASTATIN CALCIUM 20 MG TAB PO SCH (18:38)
[2017-03-22] MEDS: ERTAPENEM 1 GM in NS 100 ML IV SCH (19:35)
[2017-03-23] MEDS: clonazePAM 0.5 MG TAB PO PRN (00:33)
[2017-03-23] MEDS: HYDROCODONE/APAP 5/325 TAB PO PRN (00:34)
--- NOTE | 2017-03-23 01:36 | CPEKG ---
Heart Rate: 113 RR Interval: 531 QRSD Interval: 94 QT Interval: 376 QTC Interval: 516 QRS [place]: 11 T Wave [place]: 11 EKG Severity - ABNORMAL ECG - EKG Impression: ATRIAL FLUTTER, A-RATE 288 Electronically Signed By: Ariana Del Angel 23-Mar-2017 07:10:48
[2017-03-23] MEDS ORDERED: DILTIAZEM 25 MG/5 ML VIAL IVP ONE (02:00)
[2017-03-23] MEDS ORDERED: DILTIAZEM 125 MG in D5W 125 ML IV SCH (02:00)
[2017-03-23] MEDS: DIAZEPAM 5 MG TAB PO PRN (03:25)
[2017-03-23 05:48] LABS: ANION GAP 9 mEq/L (8-16); CALCIUM 8.2 mg/dL (8.5-10.4); CARBON DIOXIDE 30 mEq/l (22-31); CHLORIDE 99 mEq/L (97-110); CREATININE 0.6 mg/dL (0.7-1.3); GLOMERULAR FILTRATION RATE > 60; GLUCOSE 106 mg/dL (70-100); POTASSIUM 3.7 mEq/L (3.5-5.2); SODIUM 138 mEq/L (134-144)
[2017-03-23 05:58] LABS: TROPONIN I < 0.012 ng/mL (0-0.034)
[2017-03-23 06:23] LABS: HEMATOCRIT 37.9 % (40.0-51.0); HEMOGLOBIN 12.7 g/dL (13.7-17.5); MEAN CELL HEMOGLOBIN 31.4 pg (27.9-34.1); MEAN CELL HEMOGLOBIN CONCENTR. 33.5 g/dL (32.4-36.7); MEAN CELL VOLUME 93.8 fL (81.5-99.8); RED BLOOD CELL COUNT 4.04 10^6/uL (4.40-6.38); RED CELL DISTRIBUTION WIDTH 11.9 % (11.5-15.2)
--- NOTE | 2017-03-23 07:47 | NEUSURGPN ---
Date of Surgery: 03/15/17 Post Op Day: 8 Assessment/Plan: 71 yo male POD #8 s/p C3-5 ACDF and posterior fusion C3-5 Plan: -neuro stable -acute urinary retention now with Bhatia-Dr Lerma wants to continue with this for 1 week -respiratory distress requiring intubation/transfer to SDU- now extubated and doing much better. Appreciate medicien recommendations, currently on Ertapenem -recent CT neck not impressive for prevertebral swelling -PT/OT -call with any questions or concerns -Dispo planning: inpatient rehab -DVT prophx: TEDs, SCDs, Lovenox -ok for discharge once cleared by medicine Subjective: Sitting in bedside chair. Unable to sleep at night. Arms improving. Objective: Awake. Alert. PERRL. EOMI Facial expression symmetrical Speech fluent Following commands, CUEVAS Strength full Sensation intact Catheter Insertion Date: 03/15/17 - Physician Discussed Patient with : Stephanie Neurosurgery Physical Exam - Vitals, I&O, Labs I and O 03/22/17 03/23/17 03/24/17 05:59 05:59 05:59 Intake Total 1025 180 Output Total 1675 2150 Balance -650 -1970 Intake: Oral (ml) 540 180 IV Intake (ml) 220 IV Infused (ml) 265 Amiodarone HCl 540 mg In 265 D5w 300 ml @ 16.667 mls/ hr IV ONCE ONE Rx#: [id number] Output: Urine (ml) 1675 2150 Catheter 1650 2150 Toilet 25 Other: Number of Voids Catheter 1 Toilet 1 Number of Stools Toilet 1 1 Bladder Scan Volume (ml) Catheter 286 Toilet 730 Vital Signs Temp Pulse Resp BP Pulse Ox 36.9 C 73 16 132/78 H 98 03/23/17 04:00 03/23/17 04:00 03/23/17 04:00 03/23/17 04:00 03/23/17 04:00 Laboratory Results 03/23/17 05:00 03/23/17 05:00 ICD10 Worksheet Patient Problems: Problems Problem Status Onset Fusion of spine of cervical region Acute
[2017-03-23] MEDS: ENOXAPARIN 40 MG/0.4 ML SYR SC SCH (08:16)
[2017-03-23] MEDS: TAMSULOSIN HCL 0.4 MG CAP PO SCH (08:16)
[2017-03-23] MEDS: SENNOSIDES/DOCUSATE SODIUM TAB PO SCH ×2 (08:16→20:06)
[2017-03-23] MEDS: GABAPENTIN 300 MG CAP PO SCH ×3 (08:16→20:07)
[2017-03-23] MEDS: FLUTICASONE NASAL 120 SPRAYS/16 GM MDI EACHNARE PRN (08:16)
[2017-03-23] MEDS ORDERED: DIAZEPAM 5 MG TAB PO PRN (09:01)
[2017-03-23] MEDS: DILTIAZEM 30 MG TAB PO SCH ×2 (10:01→15:44)
[2017-03-23] MEDS: ACETAMINOPHEN 325 MG TAB PO PRN (11:02)
--- NOTE | 2017-03-23 14:49 | HOSPPROG ---
Hospitalist Progress Note Assessment/Plan: #Acute hypercarbic resp failure: extubated 03/20. Likely aspiration, opioids, airway edema #Recurrent atrial fibrillation: started on Dilt IV last night and converted to NSR. Change to PO. CHADS-VASC score 1. Was initially holding off anticoagulation , but ASA reasonable since recurrent, but cannot restart for 3 months post-op per NSGY. Can use Coumadin; will have to d/w patient #Indeterminate troponin: suspect due to demand. No ischemic EKG changes. Echo without wall motion abnormalities #Sepsis: resolved. Due to PNA. #Dysphagia: failed video swallow. IR to place OG with pre-vertebral edema. Dietary consulted for TFs #Aspiration PNA: Ertapenen; completed 5-day course #Cervical stenosis: POD #8 C3-5 ACDF, posterior fusion C3-5 #Chronic opioid dependency: due to stenosis. Resume oral opioids #Anxiety: Klonopin PRN. Would not increase this med with opioids and Valium; risked for delirium #Leukocytosis: stress inflammation/aspiration. Nearly resolved. Cultures pending #pyuria: no sxs. Culture NGTD #Diet: TFs #DVT ppx:SCDs #Disp: warrants PCU with recurrent A fib. Telemetry. Subjective: did not have CP or SOB with tachycardia overnight Objective: Vital Signs Temp Pulse Resp BP Pulse Ox 37.4 C 76 18 106/61 94 03/23/17 11:45 03/23/17 11:45 03/23/17 11:45 03/23/17 11:45 03/23/17 11:45 Laboratory Results 03/23/17 05:00 03/23/17 05:00 03/22/17 03/23/17 03/24/17 05:59 05:59 05:59 Intake Total 1025 180 Output Total 1675 2150 Balance -650 - Physical Exam Constitutional: no apparent distress, other (tired) Eyes: PERRL Ears, Nose, Mouth, Throat: moist mucous membranes, hearing normal Cardiovascular: regular rate and rhythym, no murmur, rub, or gallop Respiratory: no respiratory distress Gastrointestinal: normoactive bowel sounds, soft, non-tender abdomen Genitourinary: no bladder fullness Skin: warm Musculoskeletal: other (soft c-collar in place. Surgical incision, C/D/I) Neurologic: AAOx3 Psychiatric: interacting appropriately ICD10 Worksheet Patient Problems: Problems Problem Status Onset Fusion of spine of cervical region Acute
[2017-03-23] MEDS: ERTAPENEM 1 GM in NS 100 ML IV SCH (19:58)
[2017-03-23] MEDS: MELATONIN 3 MG TAB PO SCH (20:06)
[2017-03-23] MEDS: ATORVASTATIN CALCIUM 20 MG TAB PO SCH (20:06)
[2017-03-23] MEDS: AMIODARONE HCL 200 MG TAB PO SCH (20:07)
[2017-03-24] MEDS: LORazepam 2 MG/ML INJ IVP PRN ×3 (00:28→21:14)
[2017-03-24] MEDS: FLUTICASONE NASAL 120 SPRAYS/16 GM MDI EACHNARE PRN (06:15)
[2017-03-24 06:46] LABS: ANION GAP 8 mEq/L (8-16); CALCIUM 8.1 mg/dL (8.5-10.4); CARBON DIOXIDE 28 mEq/l (22-31); CHLORIDE 101 mEq/L (97-110); CREATININE 0.6 mg/dL (0.7-1.3); GLOMERULAR FILTRATION RATE > 60; GLUCOSE 88 mg/dL (70-100); POTASSIUM 3.8 mEq/L (3.5-5.2); SODIUM 137 mEq/L (134-144)
--- NOTE | 2017-03-24 08:07 | HOSPPROG ---
Hospitalist Progress Note Assessment/Plan: #Acute hypercarbic resp failure: extubated 03/20. Likely aspiration, opioids, airway edema #Recurrent atrial fibrillation: initially thought due to critical illness. Converted quickly with IV amio. Recurred 2 nights ago and converted on IV dilt, but BP dropped with orals -started oral amiodarone (03/23). 400mg BID x 1 week, 200mg BID x 1 week, then 200mg daily -CHADS-VASC score 1. Holding off anticoagulation now. ASA reasonable since recurrent, but cannot start for 3 months post-op per NSGY. If recurs, would start full anticoagulation -TTE okay. Cards to eval. #Indeterminate troponin: suspect due to demand. No ischemic EKG changes. Echo without wall motion abnormalities. Cards will FU and march due stress outpatient #Sepsis: resolved. Due to PNA. #Dysphagia: failed video swallow. IR to place feeding tube given pre-vertebral edema. Dietary consulted for TFs #Aspiration PNA: Ertapenen; completed 5-day course #Cervical stenosis: POD #9 C3-5 ACDF, posterior fusion C3-5 #Chronic opioid dependency: due to stenosis. Resume oral opioids #Anxiety: Klonopin PRN. Would not increase this med with opioids and Valium; risked for delirium #Leukocytosis: stress inflammation/aspiration. Nearly resolved. Cultures pending #pyuria: no sxs. Culture NGTD #Diet: TFs #DVT ppx:SCDs #Disp: warrants PCU with recurrent A fib. Telemetry. Subjective: did not sleep overnight Objective: Vital Signs Temp Pulse Resp BP Pulse Ox 37.0 C 72 20 140/79 H 97 03/24/17 07:57 03/24/17 07:57 03/24/17 07:57 03/24/17 07:57 03/24/17 07:57 Microbiology 03/19/17 03:10 Blood Culture - Final Blood 03/19/17 03:17 Blood Culture - Final Blood Laboratory Results 03/23/17 05:00 03/24/17 06:20 03/23/17 03/24/17 03/25/17 05:59 05:59 05:59 Intake Total 180 1020 Output Total 2150 575 250 Balance -1970 445 -250 - Physical Exam Constitutional: no apparent distress, other (tired-appearing) Ears, Nose, Mouth, Throat: moist mucous membranes Cardiovascular: regular rate and rhythym Respiratory: no respiratory distress, no rales or rhonchi Gastrointestinal: normoactive bowel sounds, soft, non-tender abdomen Musculoskeletal: other (soft c-collar in place) Neurologic: AAOx3, CN II-XII Intact, other (somnolent) ICD10 Worksheet Patient Problems: Problems Problem Status Onset Fusion of spine of cervical region Acute
--- NOTE | 2017-03-24 08:09 | SOAPPROG ---
SOAP Progress Note Assessment/Plan: Assessment: 71 yo M POD #9 C3-5 ACDF and posterior fusion Plan: neuro: stable, patient making very slow progress overall pneumonia: on invanz, per IM a-feb per IM aspiration: failed recent swallow study, NPO per speech therapy soft collar at all times PT/OT scd/angelika/lovenox for dvt prophylaxis patient likely to need inpatient rehab please call with neuro changes discussed with DR Hutson 03/15/17 12:47 03/16/17 06:41 03/18/17 07:47 03/24/17 08:06 Subjective: continued neck pain, congestion in nose this am, no arm pain or paresthesias. Objective: Vital Signs Temp Pulse Resp BP Pulse Ox 37.0 C 72 20 140/79 H 97 03/24/17 07:57 03/24/17 07:57 03/24/17 07:57 03/24/17 07:57 03/24/17 07:57 Microbiology 03/19/17 03:10 Blood Culture - Final Blood 03/19/17 03:17 Blood Culture - Final Blood Laboratory Results 03/23/17 05:00 03/24/17 06:20 03/23/17 03/24/17 03/25/17 05:59 05:59 05:59 Intake Total 180 1020 Output Total 2150 575 250 Balance -1970 445 -250 AAOX4, +FC PERRL, no facial droop 5/5 + light touch C/D/I x 2 ICD10 Worksheet Patient Problems: Problems Problem Status Onset Fusion of spine of cervical region Acute - ICD10 Problem Qualifiers (1) Fusion of spine of cervical region
[2017-03-24] MEDS: AMIODARONE HCL 200 MG TAB PO SCH ×2 (09:36→22:49)
[2017-03-24] MEDS: CETIRIZINE 10 MG TAB PO SCH (09:36)
[2017-03-24] MEDS: GABAPENTIN 300 MG CAP PO SCH ×3 (09:36→22:49)
[2017-03-24] MEDS: TAMSULOSIN HCL 0.4 MG CAP PO SCH (09:37)
[2017-03-24] MEDS: SENNOSIDES/DOCUSATE SODIUM TAB PO SCH ×2 (09:37→21:00)
[2017-03-24] MEDS: NS 1,000 ML IV SCH (09:41)
[2017-03-24] MEDS: ENOXAPARIN 40 MG/0.4 ML SYR SC SCH (09:41)
[2017-03-24] MEDS ORDERED: LIDOCAINE 2% JELLY 20 ML (UROJECT) ONE ×2 (14:36→23:58)
[2017-03-24] MEDS ORDERED: fentaNYL 100 MCG/2 ML INJ ONE (14:44)
[2017-03-24] MEDS ORDERED: MIDAZOLAM 2 MG/2 ML VIAL ONE (14:45)
[2017-03-24] MEDS ORDERED: FLUMAZENIL 0.5 MG/5 ML MDV IVP ONE (14:46)
[2017-03-24] MEDS ORDERED: IOPAMIDOL (ISOVUE-300) 100 ML BTL ONE (15:09)
[2017-03-24] MEDS ORDERED: ENALAPRILAT DIHYDRATE 1.25 MG/ML VIAL ONE (15:59)
--- NOTE | 2017-03-24 17:22 | HOSPPROG ---
Hospitalist Progress Note Assessment/Plan: I evaluated patient in PACU after Dobhoff placement. He was experience resp distress. At time of my exam, he was not in resp distress. A&P: 1. Acute resp distress: currently on 98% 15L, which I suspect can be weaned -monitor in SDU overnight -pre-vertebral edema may have contributed. Will dose IV steroids x 1 Objective: Vital Signs Temp Pulse Resp BP Pulse Ox 36.9 C 83 18 134/80 H 98 03/24/17 16:39 03/24/17 16:39 03/24/17 16:39 03/24/17 16:39 03/24/17 16:39 Microbiology 03/21/17 06:00 Urine Culture - Final Urine,Clean Catch 03/19/17 03:10 Blood Culture - Final Blood 03/19/17 03:17 Blood Culture - Final Blood Laboratory Results 03/23/17 05:00 03/24/17 06:20 03/23/17 03/24/17 03/25/17 05:59 05:59 05:59 Intake Total 180 1020 450 Output Total 2150 575 250 Balance -1970 445 200 - Physical Exam Constitutional: no apparent distress Eyes: PERRL Ears, Nose, Mouth, Throat: moist mucous membranes Cardiovascular: regular rate and rhythym Respiratory: no respiratory distress, rhonchi Gastrointestinal: normoactive bowel sounds, soft, non-tender abdomen Neurologic: AAOx3, CN II-XII Intact ICD10 Worksheet Patient Problems: Problems Problem Status Onset Fusion of spine of cervical region Acute
[2017-03-24] MEDS ORDERED: methylPREDNISolone SOD SUCC 50 MG in D5W 100 ML IV ONE (17:43)
[2017-03-24] MEDS ORDERED: METHYLPREDNISOLONE SOD SUCC IV SCH (17:45)
[2017-03-24] MEDS ORDERED: D5W IV SCH (17:45)
[2017-03-24] MEDS: ATORVASTATIN CALCIUM 20 MG TAB PO SCH (17:55)
[2017-03-24] MEDS: MELATONIN 3 MG TAB PO SCH (22:49)
[2017-03-24] MEDS: ERTAPENEM 1 GM in NS 100 ML IV SCH (22:50)
[2017-03-24] MEDS: HYDROmorphONE/DILAUDID 1 MG/ML SYR IVP PRN (22:55)
[2017-03-24] MEDS: ACETAMINOPHEN 325 MG TAB PO PRN (23:10)
--- NOTE | 2017-03-25 00:07 | GCON ---
[f rep st] CONSULTATION CARDIOLOGY CONSULTATION REASON FOR CONSULTATION: Episodes of atrial fibrillation with RVR. HISTORY OF PRESENT ILLNESS: The patient is a 71-year-old male who reported significant medical hist ory of hyperlipidemia. He underwent a C3 through C4 laminectomy, and C4 through 5 foraminectomy don e by Dr. Tilley on March 15. On his recovery, March 19, he was noted to be in significant resp iratory distress. He was transferred to the intensive care unit. There, he was intubated. Post in tubation, he was noted to have a mild troponin bump of 0.083, with a peak troponin of 0.108. Repeat ed troponin done on 03/23 was less than 0.012. Unfortunately, he did develop aspiration pneumonia a nd sepsis. While intubated, he did have an episode of atrial fibrillation, with rapid ventricular r esponse. On the , he was given 150 mg amiodarone IV, and self-converted. On 03/21, he was extu bated, and transferred up to the third floor. Unfortunately, he did have a reoccurring event of atr ial fibrillation on the morning of the , with rapid ventricular response, with rates up to 130 B PM. He was started on diltiazem, and self-converted again. He was transferred down to the PCU, in which he has been remaining in sinus rhythm. The Hospitalist service had attempted to start him on oral diltiazem. Unfortunately, he became hypotensive. Last evening, he was started to be loaded wi th amiodarone 400 mg p.o. twice daily, yet since the episode on the , he has had no further even ts. He has been noted to have a normal TSH of 2.630. He did have an echocardiogram done on March 19, 2017, showing normal LV systolic function, with no wal l motion abnormalities. LV was noted to be hyperdynamic. EF was estimated at 69%. Diastolic dysfu nction, RV normal size and systolic function, trace MR, [id number] TR. RVSP was within normal li mits. He has not been started on any anticoagulation due to having a CHADS-VASc score of 1. He continues to be on antibiotic therapy for his sepsis/pneumonia. He has also been having difficulty swallowing , undergoing swallow evaluation, and is scheduled to potentially get a feeding tube placed later tod ay. He has significant cardiac risk factors of age and hypertension. PAST MEDICAL HISTORY: Includes cervical stenosis, hyperlipidemia, GERD, BPH, colon polyps. PAST SURGICAL HISTORY: As mentioned above, cervical fusion, foraminectomy, right hemicolectomy and thoracotomy. FAMILY HISTORY: Patient reporting father of lung cancer. No significant other family history significant of coronary artery disease. SOCIAL HISTORY: The patient has never smoked. He is not a drinker. He is . Denied of any illicit drug use. He has been on narcotics for pain management. ALLERGIES: Patient has no known drug allergies. MEDICATIONS: At home include: Clonazepam 0.5 mg p.o. twice daily p.r.n., Ambien 10 mg, 5-10 mg p.o . at bedtime, simvastatin 40 mg p.o. daily, propranolol 20 mg p.o. daily p.r.n., herbs and supplemen ts, gabapentin 300 mg p.o. three times daily, Flonase 1 spray in each nasal daily p.r.n., Nexium 24 hours, 22.3 mg p.o. daily, and aspirin 81 mg p.o. daily. REVIEW OF SYSTEMS: A 10-point review of systems done on patient all negative, except as mentioned a maximo. PHYSICAL EXAMINATION: GENERAL APPEARANCE: Alert and orientated, mildly obese, male, appe ars to be in no acute distress at this time. VITAL SIGNS: Current vital signs are blood pressure o f 123/67, heart rate is 72, sinus rhythm on the monitor, respirations are 19, saturating 91% on room air, temperature of 37 degrees Celsius. HEENT: Head is normocephalic. Lips and tongue are pink, but dry. Conjunctivae pink. NECK: Trachea is midline. Carotid pulses +2 bilateral. No auscultat ed bruits. There is 2-3 cm of JVD above sternal notch. RESPIRATORY: Lungs clear, but diminished i n bases bilateral. No rhonchi, rales or wheezes. No accessory muscle use. No intercostal muscle r etraction noted. CARDIAC: Regular rate, regular rhythm. S1, S2, no S3, S4, gallops, rubs or murmu r noted. ABDOMEN: Soft, nontender. Bowel sounds x4 quadrants. No organomegaly. No palpable mass es. SKIN: [employer], warm, dry. No cyanosis, no clubbing. Trace peripheral edema. VASCULAR: Carotid s +2 bilateral, +2 radials bilateral, +2 dorsal pedal and posterior tibial pulses bilateral. NEUROL OGIC: Cranial nerves 2-12 grossly intact. LABORATORY DATA: Current laboratory results from yesterday show WBC of 11.58, hemoglobin of 12.7, h ematocrit of 37.9, platelet count of 299. Troponin of less than 0.012. TSH 2.630. Today's laboratory showing sodium 137, potassium 3.8, chloride 101, CO2 28, BUN 13, creatinine 0.6, glucose 88, calcium 8.1. IMAGING: Surgery, as mentioned above. Chest x-ray done on March 20 showing infiltrates in the right lung, upper lobe greater than lower. Electrocardiogram dated 03/19/2017 showing sinus rhythm, normal axis, with no significant ST or T-wa ve abnormalities suggesting of ischemia. Echocardiogram, as mentioned above. Neck CT done on March 19, 2016, showing borderline-low ET tube, well-seated anterior and posterior fus ion construct. No postsurgical fluid collection or hematoma. Prevertebral soft tissue swelling wit hin normal limits for recent surgery. Bilateral upper lobe consolidation, worse right than left, qu dilma aspiration. Indeterminate 1 cm left upper lobe pulmonary nodule. Swallow evaluation done on March 23, 2017 showing multifactorial [id number] pharyngeal and dys phagia, with silent aspirations with thin liquids, and some vertebral penetration with nectar-consis tent liquid. ASSESSMENT AND PLAN: 1. Paroxysmal atrial fibrillation: Patient noted to have 2 episodes of atrial fibrillation, initia l one was during hypoxic event on ventilator, which was treated with IV amiodarone bolus, and self-c onverted. The second event was with diltiazem, was converted with diltiazem IV. Unfortunately, olive gallagher was hypotensive with oral immediate relief diltiazem. He has been started on oral dosing of am iodarone at this time. He has an echocardiogram showing no significant atrial enlargement, normal p ulmonary pressures, minimal valvular heart disease. We will continue him on 400 mg of amiodarone tw ice daily for 1 week, then transition to 200 mg p.o. twice daily for 2 weeks, and then transition to 200 mg once daily. Ideally, we will keep him on amiodarone for the next 1-2 months, during his rec overy phase, and re-evaluate him in the outpatient setting. At that time, we may consider discontin uing his amiodarone, and re-attempting him on an AV matilde agent such as metoprolol or diltiazem. As for anticoagulation, patient has a CHADS-VASc score of 1. Full anticoagulation therapy is not arthur mmended at this time. Ideally, it would be good for him to be started on aspirin, but reviewing rec ords, Neurosurgery does not want him on any antiplatelet for at least 3 months. He is currently get ting Lovenox subcutaneous for DVT prophylaxis. We will re-evaluate prior to patient's discharge. I f necessary, if he has significant more runs of atrial fibrillation during hospitalization, consider ation of putting him on Eliquis at 5 mg p.o. twice daily. 2. Mildly elevated troponin levels: The patient reports no significant history of cardiac ischemia . Electrocardiogram showed no signs of ischemia. Echocardiogram showing normal LV wall motion. Tr oponin bump during hypoxia, probably due to flow mismatch. Hypoxic and hypotensive episode, probabl y due to flow mismatch. Last troponin level was within normal limits. Consideration for further ev aluation with nuclear stress testing, either prior to discharge or in outpatient setting. 3. Hyperlipidemia: Patient has noted history of hyperlipidemia. The patient has been resumed on s tatin therapy postoperatively. 4. Recent cervical spine fusion: Patient is being followed by Neurosurgery. 5. Sepsis: Patient has been on antibiotic therapy, being followed by the Hospitalist service. 6. Dysphagia: Patient is scheduled to have a feeding tube implanted later today. Thank you for this Cardiology consultation. We will be glad to follow along with you. /[id number]/MODL
[2017-03-25] MEDS: LORazepam 2 MG/ML INJ IVP PRN ×2 (04:13→10:26)
[2017-03-25 04:28] LABS: HEMATOCRIT 38.1 % (40.0-51.0); HEMOGLOBIN 13.2 g/dL (13.7-17.5); MEAN CELL HEMOGLOBIN 31.6 pg (27.9-34.1); MEAN CELL HEMOGLOBIN CONCENTR. 34.6 g/dL (32.4-36.7); MEAN CELL VOLUME 91.1 fL (81.5-99.8); RED BLOOD CELL COUNT 4.18 10^6/uL (4.40-6.38); RED CELL DISTRIBUTION WIDTH 11.9 % (11.5-15.2)
[2017-03-25 04:44] LABS: ANION GAP 6 mEq/L (8-16); CALCIUM 8.2 mg/dL (8.5-10.4); CARBON DIOXIDE 30 mEq/l (22-31); CHLORIDE 101 mEq/L (97-110); CREATININE 0.6 mg/dL (0.7-1.3); GLOMERULAR FILTRATION RATE > 60; GLUCOSE 202 mg/dL (70-100); POTASSIUM 4.2 mEq/L (3.5-5.2); SODIUM 137 mEq/L (134-144)
[2017-03-25] MEDS ORDERED: CALCIUM GLUCONATE 50 ML IV ONE (08:33)
--- NOTE | 2017-03-25 09:27 | SOAPPROG ---
SOAP Progress Note Assessment/Plan: Assessment: 71 yo M POD #10 C3-5 ACDF and posterior fusion Plan: neuro: stable, patient making very slow progress overall pneumonia: on invanz, per IM, appreciate IM help with medical issues :) a-dec per IM, currently in sinus rhythm aspiration: failed recent swallow study, NPO per speech therapy, dobhoff placed yesterday soft collar at all times PT/OT scd/angelika/lovenox for dvt prophylaxis patient likely to need inpatient rehab please call with neuro changes discussed with DR Hutson 03/15/17 12:47 03/16/17 06:41 03/18/17 07:47 03/24/17 08:06 03/25/17 09:25 Subjective: neck pain improving, no arm pain, no arm paresthesias, Objective: Vital Signs Temp Pulse Resp BP Pulse Ox 36.6 C 72 18 117/84 H 98 03/25/17 08:10 03/25/17 08:10 03/25/17 08:10 03/25/17 08:10 03/25/17 08:10 Microbiology 03/21/17 06:00 Urine Culture - Final Urine,Clean Catch 03/19/17 03:10 Blood Culture - Final Blood 03/19/17 03:17 Blood Culture - Final Blood Laboratory Results 03/25/17 04:20 03/25/17 04:20 03/24/17 03/25/17 03/26/17 05:59 05:59 05:59 Intake Total 1020 2292 Output Total 575 3120 Balance 445 -828 AAOX4, +FC PERRL, EOMI, no facial droop 5/5 + light touch C/D/I x2 ICD10 Worksheet Patient Problems: Problems Problem Status Onset Fusion of spine of cervical region Acute - ICD10 Problem Qualifiers (1) Fusion of spine of cervical region
[2017-03-25] MEDS: GABAPENTIN 300 MG CAP PO SCH ×3 (09:55→22:54)
[2017-03-25] MEDS: TAMSULOSIN HCL 0.4 MG CAP PO SCH (09:57)
[2017-03-25] MEDS: ENOXAPARIN 40 MG/0.4 ML SYR SC SCH (09:58)
[2017-03-25] MEDS: AMIODARONE HCL 200 MG TAB PO SCH ×2 (09:58→20:07)
[2017-03-25] MEDS: CETIRIZINE 10 MG TAB PO SCH (09:58)
[2017-03-25] MEDS: SENNOSIDES/DOCUSATE SODIUM TAB PO SCH ×2 (09:58→20:08)
[2017-03-25] MEDS: ACETAMINOPHEN 325 MG TAB PO PRN ×3 (10:10→20:07)
--- NOTE | 2017-03-25 15:47 | PDCARPN ---
Cardiology Progress Note Chief Complaint: Patient reports neck is sore. Assessment/Plan: Assessment: 71-year-old male with significant past history that includes hyperlipidemia. Underwent C3 through C4 laminectomy and C4 through C5 for ectomy on March 15. Unfortunately, had significant respiratory difficulties, requiring intubation and ventilation on March 19. Also had sepsis pneumonia. Noted at time of hypoxic event, to have mild troponin bump, initially at 0.083 with peaking at 0.108. Patient reporting no history of chest pressure or pain. Patient also noted to have repeat runs of atrial fibrillation with RVR, given 150 mg of amiodarone IV, and self converted. Extubated on 03/21, transferred up to 3rd floor, again having a another event of atrial fibrillation with rapid ventricular response on the morning of the . Was given IV diltiazem, and self converted again. Attempts to be placed on oral diltiazem, with hypotension. Has been started on amiodarone. Echocardiogram done (03/19/2017) normal LV systolic function with no wall motion abnormalities, hyperdynamic LV, EF 69%, diastolic dysfunction, RV normal size and systolic function, trace MR, trace to mild TR, RVSP within normal limits. Patient been having difficulty swallowing, and had a positive Swallow valve, underwent feeding tube placement last evening, mild respiratory distress. Placed in Step-Down Unit overnight. Today, patient reporting no acute respiratory distress. Reviewing monitors he has been maintaining sinus rhythm with no malignant arrhythmias or pauses. Vital signs have remained stable. Afebrile. Plan: 1. Paroxysmal atrial fibrillation: No further episodes of atrial fibrillation since morning of the . Will continue on amiodarone oral loading. With plans 400 mg twice daily for 1 week, then transitioning to 200 mg p.o. twice daily for 2 weeks, and then transition to 200 mg once daily. Will re-evaluate in outpatient setting, at that time consideration of discontinuing the amiodarone once stable from recent surgery. And consideration restarting him on a AV matilde agent. He does have a chads Vasc score 1. Full anticoagulation is not recommended. Currently he is not to have aspirin per Neurosurgery. If he has significantly more episodes of atrial fibrillation, consideration of starting him on Eliquis. Will repeat EKG in a.m.. 2. Elevated troponins: Peaking at 0.108 at time of acute respiratory distress requiring intubation and hypotension. EKG showing no signs of ischemia. Echocardiogram showing no LV motion abnormality. Patient should be further risk assessed stress testing, either prior to discharge or as outpatient 3. Hyperlipidemia: Patient is on statin therapy. 4. Aspiration pneumonia/sepsis: Patient on IV antibiotics hospital services. 5. Status post surgical fusion: Per Neurosurgery. 6. Dysphagia: A feeding tube in place. 03/25/17 16:53 Subjective: Patient denies of any chest pain, palpitations, lightheadedness. Reviewed/Discussed With: other (Dr Villalobos) Objective: Vital Signs (8 Hrs) Temp Pulse Resp BP Pulse Ox 03/25/17 12:00 70 20 113/59 L 94 03/25/17 09:15 118/84 H 94 03/25/17 08:10 36.6 C 72 18 117/84 H 98 Intake/Output (24 Hrs) 03/24/17 03/25/17 03/26/17 05:59 05:59 05:59 Intake Total 1020 2292 Output Total 575 3120 1550 Balance 445 -828 -1550 Intake: Oral (ml) 120 IV Intake (ml) 900 450 IV Infused (ml) 1312 Ertapenem 1 gm In Ns 100 100 ml @ 200 mls/hr IV DAILY21 [facility] Rx#: [id number] Ns 1,000 ml @ 75 mls/hr 1112 IV CONT [facility] Rx#: [id number] methylPREDNISolone SOD 100 SUCC 50 mg In D5w 100 ml @ 100 mls/hr IV ONCE ONE Rx#:[id number] Tube Feeding (ml) 430 Tube Flush (ml) 100 Output: Urine (ml) 575 3120 1550 Catheter 575 3120 Toilet 1550 NG Drainage (ml) 0 Small Bore (5-12 [place]ese) 0 Weighted Left Naris Jejunum 10 [place] Other: Intake Quantity npo most of the day Sufficient Number of Stools Toilet 1 Bladder Scan Volume (ml) Catheter 999 Post Void Residual Scan Volume (ml) Catheter 0 Result Diagrams: 03/25/17 04:20 03/25/17 04:20 Cardiac Labs: Cardiac Lab Results (72 Hrs) 03/23/17 05:00 Troponin I < 0.012 - Physical Exam Constitutional: no apparent distress, obese Ears, Nose, Mouth, Throat: moist mucous membranes Cardiovascular: regular rate and rhythm, no murmurs, no rubs, no gallops, pulses symmetric bilat, other (Neck brace in place, unable to assess carotids.) Peripheral Pulses: 1+: dorsalis-pedis (R), dorsalis-pedis (L), 2+: carotid (R), carotid (L) Respiratory: other (Lungs diminished in bases bilateral, no rhonchi, rales, wheezing noted. No accessory muscle use, no intercostal muscle retraction noted. ) Gastrointestinal: normoactive bowel sounds, no masses Skin: warm, no edema Neurologic: AAOx3 Psychiatric: cooperative, interactive, following commands ICD10 Worksheet Patient Problems: Problems Problem Status Onset Fusion of spine of cervical region Acute
--- NOTE | 2017-03-25 17:28 | HOSPPROG ---
Hospitalist Progress Note Assessment/Plan: * Aspiration PNA with sepsis -s/p IV Ertapenum * Dysphagia - Dobbhoff tube feeds -? PEG * Acute respiratory failure s/p extubation * Cervical stenosis s/p fusion -pre-vertebral edema leading to complications above * Recurrent afib -PO amiodarone per cardiology -no ASA per neurosurgery * Borderline troponin -stress test when more stable Subjective: Very traumatic putting dobhoff in last night Objective: Vital Signs Temp Pulse Resp BP Pulse Ox 36.7 C 75 20 107/54 L 96 03/25/17 16:00 03/25/17 16:00 03/25/17 16:00 03/25/17 16:00 03/25/17 16:00 Microbiology 03/21/17 06:00 Urine Culture - Final Urine,Clean Catch Laboratory Results 03/25/17 04:20 03/25/17 04:20 03/24/17 03/25/17 03/26/17 05:59 05:59 05:59 Intake Total 1020 2292 Output Total 575 3120 1550 Balance 445 -828 -[address] - expected degree of edema CXR viewed, my personal interpretation is - significant right sided infiltrate - Physical Exam Constitutional: no apparent distress, appears nourished, not in pain Cardiovascular: regular rate and rhythym, no murmur, rub, or gallop Respiratory: no respiratory distress, no rales or rhonchi, clear to auscultation Gastrointestinal: normoactive bowel sounds, soft, non-tender abdomen, no palpable masses Skin: no rashes or abrasions, no fluctuance, no induration Neurologic: AAOx3, sensation intact bilaterally Psychiatric: interacting appropriately, not anxious, not encephalopathic, thought process linear ICD10 Worksheet Patient Problems: Problems Problem Status Onset Fusion of spine of cervical region Acute
[2017-03-25] MEDS: ATORVASTATIN CALCIUM 20 MG TAB PO SCH (18:29)
[2017-03-25] MEDS: MELATONIN 3 MG TAB PO SCH (20:07)
[2017-03-25] MEDS: ERTAPENEM 1 GM in NS 100 ML IV SCH (20:08)
[2017-03-25] MEDS: clonazePAM 0.5 MG TAB PO PRN (22:54)
[2017-03-26] MEDS: HYDROmorphONE/DILAUDID 1 MG/ML SYR IVP PRN ×2 (01:11→16:58)
[2017-03-26] MEDS: NS 1,000 ML IV SCH (01:16)
[2017-03-26] MEDS: ACETAMINOPHEN 325 MG TAB PO PRN ×2 (03:54→08:36)
[2017-03-26 06:03] LABS: % IMMATURE GRANULYOCYTES 1.2 % (0.0-1.1); ABSOLUTE IMMATURE GRANULOCYTES 0.14 10^3/uL (0.00-0.10); ADD DIFF? NO; ADD MORPH? NO; ADD SCAN? NO; ATYPICAL LYMPHOCYTE FLAG 40 (0-99); FRAGMENT RBC FLAG 0 (0-99); HEMATOCRIT 37.8 % (40.0-51.0); HEMOGLOBIN 12.5 g/dL (13.7-17.5); LEFT SHIFT FLG 10 (0-99); LIPEMIA HEMOLYSIS FLAG 80 (0-99); MEAN CELL HEMOGLOBIN 31.4 pg (27.9-34.1); MEAN CELL HEMOGLOBIN CONCENTR. 33.1 g/dL (32.4-36.7); MEAN PLATELET VOLUME 10.6 fL (8.7-11.7); PLATELET CLUMPS FLAG 0 (0-99); PLATELET COUNT 257 10^3/uL (150-400); RED BLOOD CELL COUNT 3.98 10^6/uL (4.40-6.38)
[2017-03-26 06:16] LABS: ANION GAP 6 mEq/L (8-16); CARBON DIOXIDE 33 mEq/l (22-31); CHLORIDE 102 mEq/L (97-110); CREATININE 0.6 mg/dL (0.7-1.3); GLOMERULAR FILTRATION RATE > 60; GLUCOSE 128 mg/dL (70-100); POTASSIUM 3.9 mEq/L (3.5-5.2); SODIUM 141 mEq/L (134-144)
--- NOTE | 2017-03-26 07:56 | SOAPPROG ---
SOAP Progress Note Assessment/Plan: Assessment: 71 yo male s/p C3-5 ACDF and posterior fusion C3-5. Extubated. looking better Dobhoff strength equal throughout Plan: Advance activity CPM in SDU Maintain barton incidental left pulmonary nodule. CT chest recommended per rad report. We will defer this to intensivists. Discussed with Dr. Lerma 03/26/17 07:51 Subjective: awake, alert, denies numbness and tingling pain controlled Objective: Vital Signs Temp Pulse Resp BP Pulse Ox 36.6 C 70 22 H 111/67 96 03/26/17 07:14 03/26/17 07:14 03/26/17 07:14 03/26/17 07:14 03/26/17 07:14 Laboratory Results 03/26/17 05:52 03/26/17 05:52 03/25/17 03/26/17 03/27/17 05:59 05:59 05:59 Intake Total 2292 3337 Output Total 3120 2600 Balance -828 737 Neuro: CUEVAS, sens +LT equal strength throughout incision x 2: CDI ICD10 Worksheet Patient Problems: Problems Problem Status Onset Fusion of spine of cervical region Acute
[2017-03-26] MEDS: AMIODARONE HCL 200 MG TAB PO SCH (09:14)
[2017-03-26] MEDS: GABAPENTIN 300 MG CAP PO SCH (09:14)
[2017-03-26] MEDS: clonazePAM 0.5 MG TAB PO PRN (09:14)
[2017-03-26] MEDS: CETIRIZINE 10 MG TAB PO SCH (09:14)
[2017-03-26] MEDS: SENNOSIDES/DOCUSATE SODIUM TAB PO SCH (09:14)
[2017-03-26] MEDS: ENOXAPARIN 40 MG/0.4 ML SYR SC SCH (09:15)
[2017-03-26] MEDS: TAMSULOSIN HCL 0.4 MG CAP PO SCH (09:15)
[2017-03-26] MEDS ORDERED: ACETAMINOPHEN 650 MG/20.3 ML UDCUP PO PRN (09:19)
[2017-03-26] MEDS ORDERED: HYDROCODONE/APAP 5/325 TAB TUBE PRN (09:23)
[2017-03-26] MEDS ORDERED: LACTULOSE 20 GM/30 ML UDCUP TUBE PRN (09:24)
[2017-03-26] MEDS ORDERED: ONDANSETRON DISINTEGRATING 4 MG TAB TUBE PRN (09:24)
[2017-03-26 11:19] LABS: BASE EXCESS 5.6 mEq/L (-2.5-2.5); BICARBONATE 30 mEq/L (22-26); MEASURED OXYGEN SATURATION 88 % (92-95); PCO2 44 mmHg (34-38); PO2 53 mmHg (65-75); TCO2 31 mEq/L (23-27)
[2017-03-26] MEDS: ACETAMINOPHEN 650 MG/20.3 ML UDCUP TUBE PRN ×2 (13:17→19:28)
--- NOTE | 2017-03-26 15:37 | HOSPPROG ---
Hospitalist Progress Note Assessment/Plan: * Aspiration PNA with sepsis -s/p IV Ertapenum * Dysphagia - Dobbhoff tube feeds * Acute respiratory failure s/p extubation * Cervical stenosis s/p fusion -pre-vertebral edema leading to complications above * Recurrent afib -PO amiodarone 400mg BID for 1 week, then 200mg BID for 2 weeks, then 200 daily -no ASA per neurosurgery * Borderline troponin -stress test when more stable * Pulmonary nodule 1cm -noncontrast CT when more stable * Urinary retention 900cc -barton -can't put Flomax down tube * Probable PRABHJOT -CPAP qhs -outpatient sleep study Subjective: Still with periods of respiratory distress, significant desats also while sleeping Objective: Vital Signs Temp Pulse Resp BP Pulse Ox 36.5 C 83 21 H 122/50 H 97 03/26/17 11:35 03/26/17 12:50 03/26/17 11:35 03/26/17 11:35 03/26/17 12:50 Laboratory Results 03/26/17 05:52 03/26/17 05:52 03/25/17 03/26/17 03/27/17 05:59 05:59 05:59 Intake Total 2292 3337 Output Total 3120 2600 1300 Balance -828 737 -1300 d/w Dr. Cabrera ICU rounds - probable PRABHJOT, VCD considered CXR - improved infiltrate - Physical Exam Constitutional: no apparent distress, appears nourished, not in pain Cardiovascular: regular rate and rhythym, no murmur, rub, or gallop Respiratory: no respiratory distress, no rales or rhonchi, clear to auscultation Skin: no rashes or abrasions, no fluctuance, no induration Neurologic: AAOx3, sensation intact bilaterally Psychiatric: interacting appropriately, not anxious, not encephalopathic, thought process linear ICD10 Worksheet Patient Problems: Problems Problem Status Onset Fusion of spine of cervical region Acute
--- NOTE | 2017-03-26 15:53 | PDCARPN ---
Cardiology Progress Note Chief Complaint: Patient reporting difficultly swallowing Assessment/Plan: Assessment: 71-year-old male with significant past history that includes hyperlipidemia. Underwent C3 through C4 laminectomy and C4 through C5 for ectomy on March 15. Unfortunately, had significant respiratory difficulties, requiring intubation and ventilation on March 19. Also had sepsis pneumonia. Noted at time of hypoxic event, to have mild troponin bump, initially at 0.083 with peaking at 0.108. Patient reporting no history of chest pressure or pain. Patient also noted to have repeat runs of atrial fibrillation with RVR, given 150 mg of amiodarone IV, and self converted. Extubated on 03/21, transferred up to 3rd floor, again having a another event of atrial fibrillation with rapid ventricular response on the morning of the . Was given IV diltiazem, and self converted again. Attempts to be placed on oral diltiazem, with hypotension. Has been started on amiodarone. Echocardiogram done (03/19/2017) normal LV systolic function with no wall motion abnormalities, hyperdynamic LV, EF 69%, diastolic dysfunction, RV normal size and systolic function, trace MR, trace to mild TR, RVSP within normal limits. Patient been having difficulty swallowing, and had a positive Swallow valve, underwent feeding tube placement , mild respiratory distress post procedure. Placed in Step-Down Unit overnight. Today, White blood cell count up to 12.04 today, hemoglobin 12.5, hematocrit 37.8. BUN 15, creatinine 0.6, potassium 3 point. Chest x-ray done today showing worsening left lower lobe pneumonia, resolving right lower lobe pneumonia. Reviewing continuous cardiac monitoring, showing patient has been maintaining in sinus rhythm with no malignant arrhythmias, no further runs of atrial fibrillation with RVR noted. No pauses. Patient denies of any chest pressure or pain. Denies of any palpitations. Plan: 1. Paroxysmal atrial fibrillation: No further episodes of atrial fibrillation since morning of the . Amiodarone oral loading. With plans 400 mg twice daily for 1 week, then transitioning to 200 mg p.o. twice daily for 2 weeks, and then transition to 200 mg once daily. Will re-evaluate in outpatient setting, at that time consideration of discontinuing the amiodarone once stable from recent surgery. And consideration restarting him on a AV matilde agent. He does have a chads Vasc score 1. Full anticoagulation is not recommended. Currently he is not to have aspirin per Neurosurgery. If he has significantly more episodes of atrial fibrillation, consideration of starting him on Eliquis. 2. Elevated troponins: Peaking at 0.108 at time of acute respiratory distress requiring intubation and hypotension. EKG showed no signs of ischemia. Most recent troponin less than 0.012. Echocardiogram showing no LV motion abnormality. Patient should be further risk assessed stress testing, as an outpatient after acute event. 3. Hyperlipidemia: Patient is on statin therapy. 4. Aspiration pneumonia/sepsis: Chest x-ray showing resolving right lower lobe pneumonia, worsening left lower lobe pneumonia. Patient on IV antibiotics pet the hospitalist services. 5. Status post surgical fusion: Per Neurosurgery. 6. Dysphagia: A feeding tube in place. At this time, his cardiac status is stable. He should carry on with amiodarone loading as said above. We will sign off at this time, please notify us about patient's potential med discharge, we will schedule him for follow-up and outpatient clinic. 03/26/17 15:47 Subjective: Patient denies of any chest pressure, pain, palpitations, lightheadedness, near- syncope or syncopal events. Reviewed/Discussed With: family (Patient and his ), hospitalist (Dr Elizabeth), other (Dr Villalobos) Objective: Vital Signs (8 Hrs) Temp Pulse Resp BP Pulse Ox 03/26/17 15:35 36.9 C 95 16 111/53 L 95 03/26/17 12:50 83 97 03/26/17 11:35 36.5 C 60 21 H 122/50 H 97 Intake/Output (24 Hrs) 03/25/17 03/26/17 03/27/17 05:59 05:59 05:59 Intake Total 2292 3337 Output Total 3120 2600 1650 Balance -828 737 -1650 Intake: IV Intake (ml) 450 IV Infused (ml) 1312 1703 Ertapenem 1 gm In Ns 100 100 105 ml @ 200 mls/hr IV DAILY21 YASMANY Rx#: [id number] Ns 1,000 ml @ 75 mls/hr 1112 1598 IV CONT YASMANY Rx#: [id number] methylPREDNISolone SOD 100 SUCC 50 mg In D5w 100 ml @ 100 mls/hr IV ONCE ONE Rx#:[id number] Tube Feeding (ml) 430 1382 Tube Flush (ml) 100 252 Output: Urine (ml) 3120 2600 1650 Catheter 3120 1050 1650 Toilet 1550 NG Drainage (ml) 0 Small Bore (5-12 [place]) 0 Weighted Left Naris Jejunum 10 [place] Other: Number of Voids Catheter 1 Number of Stools Toilet 1 Bladder Scan Volume (ml) Catheter 999 Post Void Residual Scan Volume (ml) Catheter 0 Result Diagrams: 03/26/17 05:52 03/26/17 05:52 - Physical Exam Constitutional: no apparent distress, obese Ears, Nose, Mouth, Throat: moist mucous membranes Cardiovascular: regular rate and rhythm, no murmurs, no rubs, pulses symmetric bilat, other (Unable to determine this time due to C-collar.) Peripheral Pulses: 1+: dorsalis-pedis (R), dorsalis-pedis (L) Respiratory: other (Bases bilateral, no rales, wheezing noted.) Skin: warm, No no edema (Trace pedal edema) Neurologic: AAOx3 Psychiatric: cooperative, interactive, following commands ICD10 Worksheet Patient Problems: Problems Problem Status Onset Fusion of spine of cervical region Acute
--- NOTE | 2017-03-26 16:06 | PDINTPN ---
Mechanical Service Technician Progress Note Assessment/Plan: Assessment/plan: 71 M admitted 03/15/17 for redo cervical spine surgery. His hospital course has been complicated by acute hypercapnic respiratory failure due to opiates, edema , and probable aspiration. He was intubated and dropped his pressure so required pressors, but subsequently extubated and was transferred out of ICU by 03/22/17. Because of difficulty swallowing, he underwent a swallow eval which he failed. here was difficulty passing a DHT, so he was taken to PACU for placement , which was reportedly complicated by stridor and additional airway concerns. He was urgently transferred to the ICU where I evaluated him and found no evidence of stridor or respiratory failure. He continues to demonstrate intermittent hypoxemia and has had several observed apneas (though has never had a formal sleep study). * Hypoxia- the intermittent part is being likely driven by as-yet untreated PRABHJOT , and he may benefit from CPAP if it can work with his C collar. His CXRshows improved PNA and he is willing to attempt CPAP tonight. If he cannot tolerate it , then Oxygen will suffice in the short term. * PNA- he apparently aspirated earlier in the course and was treated with ertapenem. * Afib- currently on amiodarone * Sepsis resolved Objective: Vital Signs Temp Pulse Resp BP Pulse Ox 36.9 C 95 16 111/53 L 95 03/26/17 15:35 03/26/17 15:35 03/26/17 15:35 03/26/17 15:35 03/26/17 15:35 Laboratory Results 03/26/17 05:52 03/26/17 05:52 03/25/17 03/26/17 03/27/17 05:59 05:59 05:59 Intake Total 2292 3337 Output Total 3120 2600 1650 Balance -828 737 -1650 Physical Exam - Physical Exam General Appearance: WD/WN, alert EENT: PERRL/EOMI Neck: other (soft C collar, no stridor) Respiratory: lungs clear, normal breath sounds, No respiratory distress Cardiac/Chest: regular rate, rhythm, No edema Abdomen: normal bowel sounds, non-tender, soft, No distended Skin: normal color, warm/dry Lymphatic: no adenopathy Extremities: No pedal edema Neuro/Psych: alert, normal mood/affect, oriented x 3 ICD10 Worksheet Patient Problems: Problems Problem Status Onset Fusion of spine of cervical region Acute
[2017-03-26] MEDS: GABAPENTIN 300 MG CAP TUBE SCH ×2 (17:01→21:23)
[2017-03-26] MEDS: POLYETHYLENE GLYCOL 3350 17 GM PKT TUBE SCH ×2 (17:01→21:22)
[2017-03-26] MEDS: ATORVASTATIN CALCIUM 20 MG TAB TUBE SCH (19:11)
[2017-03-26] MEDS: SENNOSIDES 17.6 MG/10 ML UDL PO SCH (21:05)
[2017-03-26] MEDS: traZODone 50 MG TAB PO SCH (21:22)
[2017-03-26] MEDS: AMIODARONE HCL 200 MG TAB TUBE SCH (21:23)
[2017-03-26] MEDS: MELATONIN 3 MG TAB TUBE SCH (21:23)
[2017-03-26] MEDS: clonazePAM 0.5 MG TAB TUBE PRN (21:33)
[2017-03-27] MEDS: ACETAMINOPHEN 650 MG/20.3 ML UDCUP TUBE PRN ×4 (03:10→22:38)
[2017-03-27] MEDS: ENOXAPARIN 40 MG/0.4 ML SYR SC SCH (08:39)
[2017-03-27] MEDS: POLYETHYLENE GLYCOL 3350 17 GM PKT TUBE SCH ×4 (08:39→23:04)
[2017-03-27] MEDS: AMIODARONE HCL 200 MG TAB TUBE SCH ×2 (08:40→21:05)
[2017-03-27] MEDS: GABAPENTIN 300 MG CAP TUBE SCH ×3 (08:40→22:38)
[2017-03-27] MEDS: CETIRIZINE 10 MG TAB TUBE SCH (08:40)
[2017-03-27] MEDS: SENNOSIDES 17.6 MG/10 ML UDL PO SCH ×2 (09:00→21:02)
--- NOTE | 2017-03-27 09:42 | NEUSURGPN ---
Assessment/Plan: Assessment: 71 yo male s/p C3-5 ACDF and posterior fusion C3-5. Extubated. looking better Dobhoff strength equal throughout Plan: Advance activity CPM in SDU Maintain barton incidental left pulmonary nodule. CT chest recommended per rad report. We will defer this to intensivists. Discussed with Dr. Florentin Jiménez towards placement when able Subjective: Pt resting in bed, at bedside. States that he is doing ok. Is hoping he can to home with HHC instead of rehab. Objective: AAOx3 NAD VSS Soft collar MAEx4 Motor 5/5 BUE/BLE +LT Dobhoff Barton Urinary Catheter in Place: Yes Urinary Catheter Indication: Acute Urinary Retention Catheter Insertion Date: 03/15/17 Neurosurgery Physical Exam - Vitals, I&O, Labs I and O 03/26/17 03/27/17 03/28/17 05:59 05:59 05:59 Intake Total 3337 1110 Output Total 2600 1850 1050 Balance 737 -740 -1050 Intake: IV Infused (ml) 1703 Ertapenem 1 gm In Ns 100 105 ml @ 200 mls/hr IV DAILY21 YASMANY Rx#: [id number] Ns 1,000 ml @ 75 mls/hr 1598 IV CONT YASMANY Rx#: [id number] Tube Feeding (ml) 1382 760 Tube Flush (ml) 252 350 Output: Urine (ml) 2600 1850 1050 Catheter 1050 1850 1050 Toilet 1550 Other: Number of Voids Catheter 1 Vital Signs Temp Pulse Resp BP Pulse Ox 37.0 C 74 17 147/87 H 95 03/27/17 07:57 03/27/17 07:57 03/27/17 07:57 03/27/17 07:57 03/27/17 07:57 Laboratory Results 03/26/17 05:52 03/26/17 05:52 ICD10 Worksheet Patient Problems: Problems Problem Status Onset Fusion of spine of cervical region Acute
[2017-03-27] MEDS: LANSOPRAZOLE SUSP 30MG/10ML UDSYR (Adult) TUBE SCH (09:48)
--- NOTE | 2017-03-27 15:53 | HOSPPROG ---
Hospitalist Progress Note Assessment/Plan: * Aspiration PNA with sepsis -s/p IV Ertapenem * Dysphagia - Dobbhoff tube feeds -post-operative cervical swelling - silent aspiration -repeat VFSS in 2-3 days * Acute respiratory failure s/p extubation * Cervical stenosis s/p fusion * Recurrent afib -PO amiodarone 400mg BID for 1 week, then 200mg BID for 2 weeks, then 200 daily -no ASA per neurosurgery * Borderline troponin -stress test when more stable * Pulmonary nodule 1cm -noncontrast CT when more stable * Urinary retention 900cc -barton -can't put Flomax down tube * Probable PRABHJOT -not tolerating CPAP qhs with tube feeds -outpatient sleep study Subjective: Still not sleeping well. Didn't tolerate CPAP Objective: Vital Signs Temp Pulse Resp BP Pulse Ox 37.0 C 69 16 115/65 94 03/27/17 07:57 03/27/17 15:35 03/27/17 15:35 03/27/17 15:35 03/27/17 15:35 Laboratory Results 03/26/17 05:52 03/26/17 05:52 03/26/17 03/27/17 03/28/17 05:59 05:59 05:59 Intake Total 3337 1110 Output Total 2600 1850 1050 Balance 737 -740 -1050 d/w Dr. Cabrera - ICU rounds - [place] for floor tele reviewed - NSR, no recurrence of afib - Physical Exam Constitutional: no apparent distress, appears nourished, not in pain Cardiovascular: regular rate and rhythym, no murmur, rub, or gallop Respiratory: no respiratory distress, no rales or rhonchi, clear to auscultation Gastrointestinal: normoactive bowel sounds, soft, non-tender abdomen, no palpable masses Skin: no rashes or abrasions, no fluctuance, no induration Musculoskeletal: full muscle strength, no muscle tenderness, normal joint ROM Neurologic: AAOx3, sensation intact bilaterally Psychiatric: interacting appropriately, not anxious, not encephalopathic, thought process linear ICD10 Worksheet Patient Problems: Problems Problem Status Onset Fusion of spine of cervical region Acute
[2017-03-27] MEDS: ATORVASTATIN CALCIUM 20 MG TAB TUBE SCH (16:11)
[2017-03-27] MEDS: traZODone 50 MG TAB PO SCH (21:05)
[2017-03-27] MEDS: MELATONIN 3 MG TAB TUBE SCH (21:05)
[2017-03-27] MEDS: ZOLPIDEM TARTRATE 5 MG TAB TUBE PRN (23:43)
--- NOTE | 2017-03-28 09:42 | NEUSURGPN ---
Assessment/Plan: Assessment: 71 yo male s/p C3-5 ACDF and posterior fusion C3-5. Plan: Advance activity - PT/OT NPO with dobhoff in place, IMPORT COORDINATION AND PRODUCTION HEAD working with patient Maintain barton - once can take orals resume flomax incidental left pulmonary nodule. CT chest recommended per rad report. We will defer this to hospitalist service Work towards placement when able Subjective: Pt resting in bedside chair, frustrated about still not being able to eat and wishes he could go home. Objective: AAOx3 NAD VSS MAEx4 Motor 5/5 BUE Incisions cdi Soft collar +LT Urinary Catheter in Place: Yes Urinary Catheter Indication: Acute Urinary Retention Catheter Insertion Date: 03/15/17 Neurosurgery Physical Exam - Vitals, I&O, Labs I and O 03/27/17 03/28/17 03/29/17 05:59 05:59 05:59 Intake Total 1110 875 Output Total 1849 2049 Balance -740 -1175 Intake: Tube Feeding (ml) 760 675 Tube Flush (ml) 350 200 Output: Urine (ml) 1849 2049 Catheter 1849 2049 Vital Signs Temp Pulse Resp BP Pulse Ox 36.4 C 63 14 91/49 L 97 03/28/17 08:00 03/28/17 08:00 03/28/17 08:00 03/28/17 08:00 03/28/17 08:00 Laboratory Results 03/26/17 05:52 03/26/17 05:52 ICD10 Worksheet Patient Problems: Problems Problem Status Onset Fusion of spine of cervical region Acute
[2017-03-28] MEDS: CETIRIZINE 10 MG TAB TUBE SCH (09:46)
[2017-03-28] MEDS: GABAPENTIN 300 MG CAP TUBE SCH ×3 (09:46→20:58)
[2017-03-28] MEDS: ENOXAPARIN 40 MG/0.4 ML SYR SC SCH (09:46)
[2017-03-28] MEDS: AMIODARONE HCL 200 MG TAB TUBE SCH ×2 (09:47→20:58)
[2017-03-28] MEDS: SENNOSIDES 17.6 MG/10 ML UDL PO SCH ×3 (09:54→19:38)
[2017-03-28] MEDS: POLYETHYLENE GLYCOL 3350 17 GM PKT TUBE SCH ×3 (09:55→19:37)
[2017-03-28] MEDS: ACETAMINOPHEN 650 MG/20.3 ML UDCUP TUBE PRN ×3 (12:36→23:39)
[2017-03-28] MEDS: clonazePAM 0.5 MG TAB TUBE PRN (13:12)
[2017-03-28] MEDS: LANSOPRAZOLE SUSP 30MG/10ML UDSYR (Adult) TUBE SCH (13:14)
--- NOTE | 2017-03-28 17:05 | HOSPPROG ---
Hospitalist Progress Note Assessment/Plan: * Aspiration PNA with sepsis -s/p IV Ertapenem * Dysphagia - Dobbhoff tube feeds -post-operative cervical swelling - silent aspiration -repeat VFSS in 1-2 days * Acute respiratory failure s/p extubation * Cervical stenosis s/p fusion * Recurrent afib -PO amiodarone 400mg BID for 1 week, then 200mg BID for 2 weeks, then 200 daily -no ASA per neurosurgery * Borderline troponin -stress test when more stable * Pulmonary nodule 1cm -needs CT chest - will order for am * Urinary retention 900cc -barton -can't put Flomax down tube * Probable PRABHJOT -not tolerating CPAP qhs with tube feeds -outpatient sleep study Subjective: Better Objective: Vital Signs Temp Pulse Resp BP Pulse Ox 36.5 C 68 18 102/63 93 03/28/17 15:59 03/28/17 15:59 03/28/17 15:59 03/28/17 15:59 03/28/17 15:59 Laboratory Results 03/26/17 05:52 03/26/17 05:52 03/27/17 03/28/17 03/29/17 05:59 05:59 05:59 Intake Total 1110 875 Output Total 1850 0 Balance -708 -1453 - Physical Exam Constitutional: no apparent distress, appears nourished, not in pain Cardiovascular: regular rate and rhythym, no murmur, rub, or gallop Respiratory: no respiratory distress, no rales or rhonchi, clear to auscultation Gastrointestinal: normoactive bowel sounds, soft, non-tender abdomen, no palpable masses Skin: no rashes or abrasions, no fluctuance, no induration Neurologic: AAOx3, sensation intact bilaterally Psychiatric: interacting appropriately, not anxious, not encephalopathic, thought process linear ICD10 Worksheet Patient Problems: Problems Problem Status Onset Fusion of spine of cervical region Acute
[2017-03-28] MEDS: ATORVASTATIN CALCIUM 20 MG TAB TUBE SCH (17:08)
[2017-03-28] MEDS: DIAZEPAM 5 MG TAB TUBE PRN (18:03)
[2017-03-28] MEDS: traZODone 50 MG TAB TUBE SCH (20:58)
[2017-03-28] MEDS: MELATONIN 3 MG TAB TUBE SCH (20:58)
[2017-03-28] MEDS: ZOLPIDEM TARTRATE 5 MG TAB TUBE PRN (23:39)
[2017-03-29] MEDS: clonazePAM 0.5 MG TAB TUBE PRN (03:41)
[2017-03-29] MEDS: DIAZEPAM 5 MG TAB TUBE PRN ×3 (03:43→22:34)
[2017-03-29] MEDS: ACETAMINOPHEN 650 MG/20.3 ML UDCUP TUBE PRN ×3 (06:27→21:10)
[2017-03-29] MEDS: SENNOSIDES 17.6 MG/10 ML UDL PO SCH ×2 (08:01→22:24)
[2017-03-29] MEDS: ENOXAPARIN 40 MG/0.4 ML SYR SC SCH (08:06)
[2017-03-29] MEDS: AMIODARONE HCL 200 MG TAB TUBE SCH ×2 (08:08→21:10)
[2017-03-29] MEDS: GABAPENTIN 300 MG CAP TUBE SCH ×3 (08:10→22:34)
[2017-03-29] MEDS: CETIRIZINE 10 MG TAB TUBE SCH (08:11)
[2017-03-29] MEDS: POLYETHYLENE GLYCOL 3350 17 GM PKT TUBE SCH ×3 (08:14→22:24)
[2017-03-29] MEDS: LANSOPRAZOLE SUSP 30MG/10ML UDSYR (Adult) TUBE SCH (09:00)
--- NOTE | 2017-03-29 12:34 | HOSPPROG ---
Hospitalist Progress Note Assessment/Plan: 71 y/o male new to my care today with * Aspiration PNA with sepsis s/p 8 days of ERTA * Dysphagia in the setting of recent fusion -continue Dobbhoff tube feeds -post-operative cervical swelling - silent aspiration -repeat VFSS today or tomorrow * Acute respiratory failure s/p extubation (resolved) * Cervical stenosis s/p fusion * Recurrent afib -PO amiodarone 400mg BID for 1 week, then 200mg BID for 2 weeks, then 200 daily -no ASA per neurosurgery * Borderline troponin -stress test when more stable * Pulmonary nodule 1cm likely hemartoma per rads -I reviewed the chest CT done today. No f/u thought to be needed * Urinary retention 900cc -barton -can't put Flomax down tube * Probable PRABHJOT -not tolerating CPAP qhs with tube feeds -outpatient sleep study Dispo pending results of return of swallow function. will continue to follow Subjective: no fever or chills. no shortness of breath. eager to start eating Objective: Vital Signs Temp Pulse Resp BP Pulse Ox 36.7 C 62 19 95/56 L 93 03/29/17 11:15 03/29/17 11:15 03/29/17 11:15 03/29/17 11:15 03/29/17 11:15 Laboratory Results 03/26/17 05:52 03/26/17 05:52 03/28/17 03/29/17 03/30/17 05:59 05:59 05:59 Intake Total 5 2010 Output Total 2049 1999 Balance -1175 11 - Physical Exam Constitutional: no apparent distress, appears nourished, not in pain Eyes: other (ngt in place) Ears, Nose, Mouth, Throat: moist mucous membranes, hearing normal, ears appear normal, no oral mucosal ulcers Cardiovascular: regular rate and rhythym, no murmur, rub, or gallop Respiratory: no respiratory distress, no rales or rhonchi, clear to auscultation , No inspiratory crackles Gastrointestinal: normoactive bowel sounds, soft, non-tender abdomen, no palpable masses, No guarding, No rebound Neurologic: AAOx3, sensation intact bilaterally ICD10 Worksheet Patient Problems: Problems Problem Status Onset Fusion of spine of cervical region Acute
--- NOTE | 2017-03-29 13:00 | SOAPPROG ---
SOAP Progress Note Assessment/Plan: Assessment: 71 yo M POD #14 C3-5 ACDF and posterior fusion Plan: neuro: stable, patient making very slow progress overall pneumonia: on invanz, per IM, appreciate IM help with medical issues :) a-dec per IM, currently in sinus rhythm aspiration: failed recent swallow study, NPO per speech therapy, dobhoff placed yesterday pulmonary nodule: hematoma, no FU needed per rads soft collar at all times PT/OT scd/angelika/lovenox for dvt prophylaxis patient likely to need inpatient rehab please call with neuro changes discussed with DR Hutson 03/15/17 12:47 03/16/17 06:41 03/18/17 07:47 03/24/17 08:06 03/25/17 09:25 03/29/17 12:59 Subjective: neck pain improving, still with dysphagia Objective: Vital Signs Temp Pulse Resp BP Pulse Ox 36.7 C 62 19 95/56 L 93 03/29/17 11:15 03/29/17 11:15 03/29/17 11:15 03/29/17 11:15 03/29/17 11:15 Laboratory Results 03/26/17 05:52 03/26/17 05:52 03/28/17 03/29/17 03/30/17 05:59 05:59 05:59 Intake Total 5 2010 Output Total 2049 1999 Balance -1175 11 AAOX4, +FC PERRL, EOMI, no facial droop 5/5 + light touch C/D/I x 2 ICD10 Worksheet Patient Problems: Problems Problem Status Onset Fusion of spine of cervical region Acute - ICD10 Problem Qualifiers (1) Fusion of spine of cervical region
[2017-03-29] MEDS: ATORVASTATIN CALCIUM 20 MG TAB TUBE SCH (17:51)
[2017-03-29] MEDS: traZODone 50 MG TAB TUBE SCH (21:10)
[2017-03-29] MEDS: MELATONIN 3 MG TAB TUBE SCH (21:10)
[2017-03-29] MEDS: ZOLPIDEM TARTRATE 5 MG TAB TUBE PRN (23:42)
[2017-03-30] MEDS: ACETAMINOPHEN 650 MG/20.3 ML UDCUP TUBE PRN ×3 (05:19→23:45)
--- NOTE | 2017-03-30 07:59 | SOAPPROG ---
SOAP Progress Note Assessment/Plan: Assessment: 71 yo male s/p C3-5 ACDF and posterior fusion C3-5. Bhatia out Dobhoff in place with tube feeds strength equal throughout feeling good overall ongoing risk of aspiration based on yesterday's swallow eval. Plan: Advance activity Continue tube feeds Rehab planning 03/30/17 07:59 Subjective: out of bed in chair, doing well. Bhatia out. Feeling good in general Objective: Vital Signs Temp Pulse Resp BP Pulse Ox 36.3 C 67 18 90/54 L 97 03/30/17 07:35 03/30/17 07:35 03/30/17 07:35 03/30/17 07:35 03/30/17 07:35 Laboratory Results 03/26/17 05:52 03/26/17 05:52 03/29/17 03/30/17 03/31/17 05:59 05:59 05:59 Intake Total 2010 Output Total 1999 1300 Balance 11 -1300 Incision: ant/post CDI CUEVAS, sens +Lt ambulatory ICD10 Worksheet Patient Problems: Problems Problem Status Onset Fusion of spine of cervical region Acute
[2017-03-30] MEDS: AMIODARONE HCL 200 MG TAB TUBE SCH ×2 (08:20→21:20)
[2017-03-30] MEDS: ENOXAPARIN 40 MG/0.4 ML SYR SC SCH (08:23)
[2017-03-30] MEDS: GABAPENTIN 300 MG CAP TUBE SCH ×3 (08:23→23:45)
[2017-03-30] MEDS: CETIRIZINE 10 MG TAB TUBE SCH (08:24)
[2017-03-30] MEDS: LANSOPRAZOLE SUSP 30MG/10ML UDSYR (Adult) TUBE SCH (08:30)
[2017-03-30] MEDS: POLYETHYLENE GLYCOL 3350 17 GM PKT TUBE SCH ×3 (08:38→21:21)
[2017-03-30] MEDS: SENNOSIDES 17.6 MG/10 ML UDL PO SCH ×2 (08:39→21:21)
[2017-03-30] MEDS: DIAZEPAM 5 MG TAB TUBE PRN ×2 (09:08→17:25)
--- NOTE | 2017-03-30 13:30 | HOSPPROG ---
Hospitalist Progress Note Assessment/Plan: 71 y/o male new to my care today with * Treated Aspiration PNA with sepsis s/p 8 days of Invanz * Dysphagia in the setting of recent fusion -continue Dobbhoff tube feeds -post-operative cervical swelling - silent aspiration -repeat VFSS today or tomorrow * Acute respiratory failure s/p extubation (resolved) * Cervical stenosis s/p fusion * Recurrent afib -PO amiodarone 400mg BID for 1 week, then 200mg BID for 2 weeks, then 200 daily -no ASA per neurosurgery * Borderline troponin -stress test as an outpatient * Pulmonary nodule 1cm likely hemartoma per rads -I reviewed the chest CT done today. No f/u thought to be needed * Urinary retention 900cc -barton la'ed -start flomax when able to swallow * Probable PRABHJOT -not tolerating CPAP qhs with tube feeds -outpatient sleep study Will sign off. Call with further questions. Await placement Subjective: no shortness of breath. still not able to swallow. no new complaints Objective: Vital Signs Temp Pulse Resp BP Pulse Ox 36.6 C 65 21 H 102/62 90 L 03/30/17 12:00 03/30/17 12:00 03/30/17 12:00 03/30/17 12:00 03/30/17 12:00 Laboratory Results 03/26/17 05:52 03/26/17 05:52 03/29/17 03/30/17 03/31/17 05:59 05:59 05:59 Intake Total 2010 0 Output Total 1999 1300 Balance 11 -1300 0 swallow study reviewed - Physical Exam Constitutional: no apparent distress, appears nourished, not in pain Ears, Nose, Mouth, Throat: other (ngt in place) Cardiovascular: regular rate and rhythym, no murmur, rub, or gallop Respiratory: no respiratory distress, no rales or rhonchi, clear to auscultation , No rhonchi Gastrointestinal: normoactive bowel sounds, soft, non-tender abdomen, no palpable masses ICD10 Worksheet Patient Problems: Problems Problem Status Onset Fusion of spine of cervical region Acute
[2017-03-30] MEDS: ATORVASTATIN CALCIUM 20 MG TAB TUBE SCH (17:24)
[2017-03-30] MEDS: traZODone 50 MG TAB TUBE SCH (21:20)
[2017-03-30] MEDS: MELATONIN 3 MG TAB TUBE SCH (21:20)
[2017-03-30] MEDS: ZOLPIDEM TARTRATE 5 MG TAB TUBE PRN (23:45)
[2017-03-30] MEDS: clonazePAM 0.5 MG TAB TUBE PRN (23:48)
[2017-03-31] MEDS: DIAZEPAM 5 MG TAB TUBE PRN ×2 (01:33→12:53)
[2017-03-31] MEDS: ACETAMINOPHEN 650 MG/20.3 ML UDCUP TUBE PRN ×2 (05:29→12:13)
[2017-03-31] MEDS: LORazepam 2 MG/ML INJ IVP PRN (05:29)
[2017-03-31] MEDS: SENNOSIDES 17.6 MG/10 ML UDL PO SCH (08:55)
[2017-03-31] MEDS: POLYETHYLENE GLYCOL 3350 17 GM PKT TUBE SCH ×2 (08:55→17:31)
[2017-03-31] MEDS: GABAPENTIN 300 MG CAP TUBE SCH ×2 (09:20→17:31)
[2017-03-31] MEDS: ENOXAPARIN 40 MG/0.4 ML SYR SC SCH (09:21)
[2017-03-31] MEDS: LANSOPRAZOLE SUSP 30MG/10ML UDSYR (Adult) TUBE SCH (09:21)
[2017-03-31] MEDS: CETIRIZINE 10 MG TAB TUBE SCH (09:21)
[2017-03-31] MEDS ORDERED: MAGNESIUM HYDROXIDE 30 ML UDCUP TUBE PRN (09:39)
--- NOTE | 2017-03-31 10:27 | SOAPPROG ---
SOAP Progress Note Assessment/Plan: Assessment: 71 yo male s/p C3-5 ACDF and posterior fusion C3-5. Barton removed on 03/30 but unable to void and barton replaced and Urology consulted. Dobhoff in place with tube feeds strength equal throughout feeling good overall ongoing risk of aspiration based on recent swallow eval. Plan: Advance activity Continue tube feeds Rehab planning discussed with Dr. Lerma 03/31/17 10:26 Subjective: awake, alert, no new issues. Objective: Vital Signs Temp Pulse Resp BP Pulse Ox 36.4 C 69 19 97/49 L 95 03/31/17 07:17 03/31/17 07:17 03/31/17 07:17 03/31/17 07:17 03/31/17 07:17 Laboratory Results 03/26/17 05:52 03/26/17 05:52 03/30/17 03/31/17 04/01/17 05:59 05:59 05:59 Intake Total 1080 1015 Output Total 1300 1750 Balance -220 735 Neuro: CUEVAS, sens +LT ambulatory ICD10 Worksheet Patient Problems: Problems Problem Status Onset Fusion of spine of cervical region Acute
--- NOTE | 2017-03-31 11:01 | SOAPPROG ---
SOAP Progress Note Assessment/Plan: Assessment: Urinary retention Plan: Recommend catheter remain in place until next week when he may have a voiding trial Wednesday or Wednesday at the rehab facility. 03/31/17 10:58 Subjective: No urinary concerns. Objective: Vital Signs Temp Pulse Resp BP Pulse Ox 36.4 C 69 19 97/49 L 95 03/31/17 07:17 03/31/17 07:17 03/31/17 07:17 03/31/17 07:17 03/31/17 07:17 Laboratory Results 03/26/17 05:52 03/26/17 05:52 03/30/17 03/31/17 04/01/17 05:59 05:59 05:59 Intake Total 1080 1015 Output Total 1300 1750 Balance -220 -735 Physical Exam - Physical Exam General Appearance: alert, no apparent distress EENT: normal ENT inspection, other (NG tube) Neck: No normal inspection (neck brace ) Respiratory: normal breath sounds Male Genitalia: other (clear urine in catheter) Skin: normal color Neuro/Psych: alert ICD10 Worksheet Patient Problems: Problems Problem Status Onset Fusion of spine of cervical region Acute
[2017-03-31] MEDS: AMIODARONE HCL 200 MG TAB TUBE SCH (11:14)
[2017-03-31 17:11] VITALS: BP 98/57; PULSE 68; RESP 22; TEMP 98; O2SAT 97
[2017-03-31] MEDS: ATORVASTATIN CALCIUM 20 MG TAB TUBE SCH (18:07)
[2017-03-31] MEDS ORDERED: SENNOSIDES 17.6 MG/10 ML UDL TUBE SCH (21:00)
== END 2017-03-31 18:00 | DRG 453 ==
LOC: F3N 05:38 → F2N 03-19 00:27 → F3N 03-21 14:16 → F2W 03-23 02:05 → F2N 03-24 16:28 → F3N 03-27 15:39
PROVIDERS: ADMIT Neurological Surgery; ATTEND Neurological Surgery
PROC: 00NW0ZZ Release Cervical Spinal Cord, Open Approach (ICD-10-PCS; principal; 2017-03-15 07:15)
PROC: 4A1004G Monitoring of Central Nervous Electrical Activity, Intraoperative, Open Approach (ICD-10-PCS; principal; 2017-03-15 07:15)
PROC: 0RG20A0 Fusion of 2 or more Cervical Vertebral Joints with Interbody Fusion Device, Anterior Approach, Anterior Column, Open Approach (ICD-10-PCS; principal; 2017-03-15 07:15)
PROC: 0RG20AJ Fusion of 2 or more Cervical Vertebral Joints with Interbody Fusion Device, Posterior Approach, Anterior Column, Open Approach (ICD-10-PCS; principal; 2017-03-15 07:15)
PROC: 0RT30ZZ Resection of Cervical Vertebral Disc, Open Approach (ICD-10-PCS; principal; 2017-03-15 07:15)
PROC: 0RP10AZ Removal of Interbody Fusion Device from Cervical Vertebral Joint, Open Approach (ICD-10-PCS; principal; 2017-03-15 07:15)
PROC: 5A1945Z Respiratory Ventilation, 24-96 Consecutive Hours (ICD-10-PCS; 2017-03-19)
PROC: 0B9J8ZX Drainage of Left Lower Lung Lobe, Via Natural or Artificial Opening Endoscopic, Diagnostic (ICD-10-PCS; 2017-03-19)
PROC: 0BH18EZ Insertion of Endotracheal Airway into Trachea, Via Natural or Artificial Opening Endoscopic (ICD-10-PCS; 2017-03-19)
PROC: 0B9F8ZX Drainage of Right Lower Lung Lobe, Via Natural or Artificial Opening Endoscopic, Diagnostic (ICD-10-PCS; 2017-03-19)
PROC: 02HV33Z Insertion of Infusion Device into Superior Vena Cava, Percutaneous Approach (ICD-10-PCS; 2017-03-19)
PROC: 0DH67UZ Insertion of Feeding Device into Stomach, Via Natural or Artificial Opening (ICD-10-PCS; 2017-03-24)
DX: M96.0 Pseudarthrosis after fusion or arthrodesis (principal); J96.02 Acute respiratory failure with hypercapnia; A41.9 Sepsis, unspecified organism; J69.0 Pneumonitis due to inhalation of food and vomit; M47.12 Other spondylosis with myelopathy, cervical region; I48.91 Unspecified atrial fibrillation; R13.10 Dysphagia, unspecified; R33.9 Retention of urine, unspecified; M50.31 Other cervical disc degeneration, high cervical region; M50.21 Other cervical disc displacement, high cervical region; E66.01 Morbid (severe) obesity due to excess calories; E78.5 Hyperlipidemia, unspecified; K21.9 Gastro-esophageal reflux disease without esophagitis; N40.1 Benign prostatic hyperplasia with lower urinary tract symptoms
CPT/HCPCS: 82947-QW; 92526-GN; 92610-GN; 92611-GN; 97116-GP; 97161-GP; 97164-GP; 97166-GO; 97168-GO; 97530-GO; 97530-GP; 97535-GO; C1713; C1751; C1769; G8978-GP-CJ; G8979-GP-CI; G8987-GO-CI; G8987-GO-CJ; G8987-GO-CK; G8988-GO-CI; G8996-GN-CI; G8996-GN-CJ; G8996-GN-CK; G8996-GN-CL; G8997-GN-CH; G8997-GN-CI; G8997-GN-CK; G8998-GN-CK; G8998-GN-CL; J0282; J0610; J0690; J1170; J1200; J1335; J1650; J1885; J2060; J2250; J2310; J2405; J2704; J2930; J2997; J3010; J7060; P9041; Q9967

== ENCOUNTER → 2018-01-14 | Outpatient (CLI) | payer OTHER, MEDICARE | LOC: FIMAGING 08:45 | PROVIDERS: ATTEND Physical Medicine & Rehabilitation Neuromuscular Medicine | DX: M25.842 Other specified joint disorders, left hand (principal) | CPT/HCPCS: 78315; A9503 ==

== ENCOUNTER → 2018-02-08 | Outpatient (CLI) | payer OTHER, MEDICARE | LOC: BMCIMAGING 13:56 | PROVIDERS: ATTEND Internal Medicine | DX: M79.89 Other specified soft tissue disorders (principal) ==

== ENCOUNTER 2018-04-07 10:50 | Observation (INO) | payer OTHER, MEDICARE ==
[2018-04-07] MEDS ORDERED: levOFLOXACIN 500 MG/DEXTROSE 100 ML IV ONE (11:08)
[2018-04-07] MEDS ORDERED: LIDOCAINE 1% 2 ML INJ ID PRN (11:09)
[2018-04-07] MEDS ORDERED: LR 1,000 ML IV ONE (11:09)
[2018-04-07] MEDS ORDERED: LIDOCAINE 2% JELLY 20 ML (UROJECT) ONE (11:14)
[2018-04-07] MEDS ORDERED: MIDAZOLAM 2 MG/2 ML VIAL IVP ONE (12:13)
[2018-04-07] MEDS ORDERED: MIDAZOLAM 2 MG/2 ML VIAL ONE (12:13)
--- NOTE | 2018-04-07 12:14 | PDANEPAE ---
ANE History of Present Illness BPH ANE Past Medical History - Cardiovascular History Hx Hypertension: No Hx Arrhythmias: No Hx Chest Pain: No Hx Coronary Artery / Peripheral Vascular Disease: No Hx CHF / Valvular Disease: No Hx Palpitations: No Cardiovascular History Comment: one episode Afib with cervical surgery, none prior and none since - Pulmonary History Hx COPD: No Hx Asthma/Reactive Airway Disease: No Hx Recent Upper Respiratory Infection: No Hx Oxygen in Use at Home: No Hx Sleep Apnea: No Sleep Apnea Screening Result - Last Documented: Positive Pulmonary History Comment: left lower lobectomy 1985 - Neurologic History Hx Cerebrovascular Accident: No Hx Seizures: No Hx Dementia: No Neurologic History Comment: previous cervical surgery 07/2016. numbness and tingling to index finger on left hand. 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 occ constipation - Other Health History Other Health History: wears glasses. rosacea. nerve pain left arm and hand - Chronic Pain History Chronic Pain: No (neck, back and feet) - Surgical History Prior Surgeries: cervical surgery 07/2016 at [facility]. lower left lobectomy 1985 d/t chronic pna and tumor (benign). bronchoscopy 1985. lap assisted right colectomy 08/2010 with Will HAAS Review of Systems Review of Systems: - Exercise capacity METS (RN): 4 METS ANE Patient History - Allergies Allergies/Adverse Reactions: No Known Allergies Allergy (Verified 03/25/18 12:11) - Home Medications Home Medications: Zolpidem Tartrate [Ambien 10 mg] 5 - 10 mg PO HS PRN 03/08/17 [Last Taken 22:00] Acetaminophen [Tylenol 325mg (*)] 650 mg PO Q6 PRN 03/18/18 [Last Taken 04/01/18 ] Aspirin EC [Aspirin EC 81 mg (*)] 81 mg PO DAILY 03/18/18 [Last Taken 04/03/18 08:00] Atorvastatin Calcium [Lipitor 20 mg (*)] 20 mg PO DAILY 03/18/18 [Last Taken 08:00] Diazepam [Valium 5 MG (*)] 5 mg PO QID PRN 03/18/18 [Last Taken 03/31/18] Duloxetine HCl [Cymbalta] 20 mg PO DAILY 03/18/18 [Last Taken Unknown] Esomeprazole Magnesium [Nexium] 20 mg PO DAILY 03/18/18 [Last Taken 04/07/18 08: 30] Furosemide [Lasix 40 MG (*)] 40 mg PO DAILY 03/18/18 [Last Taken 04/06/18 08:00] Gabapentin [Neurontin 300 MG (*)] 300 mg PO QID 03/18/18 [Last Taken 04/07/18 08 :30] Ibuprofen [Motrin (*)] 400 mg PO Q6 PRN 03/18/18 [Last Taken 03/24/18] Naphazoline HCl/Pheniramine [Opcon-A Eye Drops] 1 drop EACHEYE DAILY 03/18/18 [ Last Taken 04/06/18 08:00] Potassium Cl [Klor-Con] 10 meq PO BID 03/18/18 [Last Taken 04/06/18 21:00] Sennosides/Docusate Sodium [Senokot-S (OTC)] 1 each PO DAILY 03/18/18 [Last Taken 04/06/18 21:00] oxyCODONE/APAP 5/325 [Percocet 5/325 (*)] 1 tab PO Q4 PRN 03/18/18 [Last Taken Unknown] - NPO status NPO Since - Liquids (Date): 04/07/18 NPO Since - Liquids (Time): 08:45 NPO Since - Solids (Date): 04/06/18 NPO Since - Solids (Time): 21:30 - Smoking Hx Smoking Status: Never smoked - Family Anes Hx Family Hx Anesthesia Complications: none ANE Labs/Vital Signs - Vital Signs Blood Pressure: 110/60 Heart Rate: 66 Respiratory Rate: 16 O2 Sat (%): 95 Height: 185.42 cm Weight: 107.955 kg ANE Physical Exam - Airway Neck exam: decreased ROM Mallampati Score: Class 3 Mouth exam: small mouth opening - Pulmonary Pulmonary: no respiratory distress - Cardiovascular Cardiovascular: regular rate and rhythym - ASA Status ASA Status: III ANE Anesthesia Plan Anesthesia Plan: GA w LMA
[2018-04-07] MEDS ORDERED: fentaNYL 100 MCG/2 ML INJ ONE ×3 (12:21→14:13)
[2018-04-07] MEDS ORDERED: PROPOFOL/EMULSION 500 MG/50 ML BOTTLE IV ONE (12:22)
--- NOTE | 2018-04-07 12:27 | PDHPUP ---
History & Physical Update H&P update statement: This history and physical update is based on an assessment of the patient which was completed after admission or registration (within 24 hours), but prior to the surgery/procedure. H&P update: no change in patient's condition since H&P completed
[2018-04-07] MEDS ORDERED: ONDANSETRON 4 MG/2 ML VIAL ONE (13:28)
[2018-04-07] MEDS ORDERED: DEXAMETHASONE 4 MG/ML VIAL ONE (13:28)
--- NOTE | 2018-04-07 13:47 | POSTANESTH ---
Post Anesthetic Evaluation Cardiovascular Status: Normal, Stable Respiratory Status: Normal, Stable Level of Consciousness/Mental Status: Can Participate in Eval Pain Control: Adequate, Prn Tx Ordered Nausea/Vomiting Control: Adequate, Prn Tx Ordered Complications Possibly Related to Anesthesia: None Noted
--- NOTE | 2018-04-07 13:53 | POSTOPPROG ---
Post Op Note Date of Operation: 04/07/18 Surgeon: Terence Ram (# [id number]) Anesthesia: LMA Pre-op Diagnosis: BPH w/ obstruction Post-op Diagnosis: BPH w/ obstruction Procedure: TURP Findings: See op note Inf/Abcess present in the surg proc area at time of surgery?: No EBL: 50-100 (50 cc) Complications: None Specimen(s): Prostate adenoma
[2018-04-07] MEDS ORDERED: PROMETHAZINE HCL 25 MG/ML INJ IVP PRN ×2 (13:56→14:13)
[2018-04-07] MEDS ORDERED: LIDOCAINE 2% JELLY 5 ML TUBE TP PRN (13:56)
[2018-04-07] MEDS ORDERED: ONDANSETRON 4 MG/2 ML VIAL IVP PRN ×2 (13:56→14:13)
[2018-04-07] MEDS ORDERED: OPIUM/BELLADONNA ALKALO SUPP PR PRN (13:56)
[2018-04-07] MEDS ORDERED: DIAZEPAM 5 MG TAB PO PRN (13:57)
[2018-04-07] MEDS ORDERED: NON-FORMULARY NEW DRUG (Zolpidem Tartrate [Ambien 10 Mg] 0 MG) PO PRN (13:57)
[2018-04-07] MEDS ORDERED: HYDROCODONE/APAP 5/325 TAB PO PRN (14:13)
[2018-04-07] MEDS ORDERED: NALOXONE HCL 0.4 MG/ML INJ IVP PRN (14:13)
[2018-04-07] MEDS ORDERED: HYDROmorphONE/DILAUDID 2 MG/ML INJ IVP PRN (14:13)
[2018-04-07] MEDS: fentaNYL 100 MCG/2 ML INJ IVP PRN ×3 (14:15→14:35)
--- NOTE | 2018-04-07 14:32 | GOP ---
[f rep st] OPERATIVE REPORT DATE OF OPERATION: 04/07/2018 SURGEON: Terence Ram MD ANESTHESIA: Laryngeal mask. PREOPERATIVE DIAGNOSIS: Benign prostatic hypertrophy with obstruction, status post GreenLight photovaporization of the prostate. POSTOPERATIVE DIAGNOSIS: Benign prostatic hypertrophy with obstruction, status post GreenLight photovaporization of the prostate. PROCEDURE PERFORMED: Transurethral prostate resection. FINDINGS: Residual BPH adenoma that was resected as noted in the body of the operative report. SPECIMENS: Prostate chips. ESTIMATED BLOOD LOSS: Approximately 50 cc. INDICATIONS: This gentleman underwent GreenLight photovaporization of the prostate last year. He continued to have some obstructive and irritative voiding symptoms afterwards. Office cystoscopy revealed some residual, potentially obstructing prostate adenoma. The patient has opted to undergo operative resection of this remaining adenoma. The indications for the procedures, as well as potential risks and complications were discussed with the patient preoperatively. He appeared to understand, his questions were answered, and he wished to proceed. Written informed surgical consent was thereafter obtained. DESCRIPTION OF PROCEDURE: The patient was brought to the operating room and administered laryngeal mask anesthesia. He was carefully placed in the dorsal lithotomy position on the cystoscopic table. The genital area was sterilely prepped with Betadine scrub and paint then draped in the usual sterile fashion. Cystoscopy was performed with the 30 degree and 70-degree lenses through a 25- Nepalese sheath. Anterior urethra revealed no abnormalities. Posterior urethra revealed some residual adenoma involving the distal one-half of the prostatic fossa. This involved primarily the lateral lobes. The bladder was moderately to heavily trabeculated, which was unchanged from prior office cystoscopy. No other areas of abnormal erythema, tumors, nor foreign bodies were seen within the bladder. Ureteral orifices were normal in regards to shape and position along the trigone. The cystoscope was removed and a 28-Nepalese resectoscopic sheath with obturator was inserted into the bladder. Burns resectoscope with a standard resecting loop were then inserted. Using normal saline continuous flow, I then performed a systematic resection of the remaining adenoma. I resected circumferentially until capsular fibers were noted. This marked the depth of resection. The prostatic capsule was the limiting factor in terms of depth of resection. The resection started at the level of bladder neck and continued to the level of the verumontanum distally. A button electrode was then used to fulgurate the resected surface of the prostate for postoperative hemostasis. All the prostate tissue was removed from the bladder using an Ellik evacuator. The instruments were then removed once the resection was completed. At the completion of the operation, the ureteral orifices were noted to be well preserved and no resection had taken place distal to the verumontanum. After removing the instruments, a 22-Nepalese, 3-way Bhatia catheter was inserted with approximately 35 cc of sterile water placed in the balloon. The catheter was connected to continuous irrigation. The catheter was irrigated manually and the return at the end of the case was light pink. The catheter was connected to bag drainage. The patient was then awakened, transferred to his bed, then taken to the recovery room. He tolerated the procedure well overall. COMPLICATIONS: None. DISPOSITION: He was transferred to the recovery room in stable condition. He will be admitted overnight for continuous bladder irrigation, then hopeful discharge tomorrow. /[id number]/MODL MTDD
[2018-04-07] MEDS ORDERED: ZOLPIDEM TARTRATE 5 MG TAB PO PRN (15:00)
[2018-04-07] MEDS: HYDROCODONE/APAP 5/325 TAB PO PRN ×2 (15:13→20:08)
[2018-04-07] MEDS: D5W 1/2 NS 1,000 ML IV SCH (15:32)
[2018-04-07] MEDS ORDERED: HYDROCORTISONE 1% CREAM TP PRN (16:43)
[2018-04-07] MEDS: DIPHENHYDRAMINE CREAM TP PRN (17:56)
[2018-04-07] MEDS: GABAPENTIN 300 MG CAP PO SCH ×2 (17:56→20:08)
[2018-04-07] MEDS: POTASSIUM CL 10 MEQ TAB PO SCH (20:09)
[2018-04-08] MEDS: HYDROCODONE/APAP 5/325 TAB PO PRN ×3 (00:03→13:03)
[2018-04-08] MEDS: D5W 1/2 NS 1,000 ML IV SCH (00:06)
[2018-04-08] MEDS: GABAPENTIN 300 MG CAP PO SCH ×2 (05:27→11:33)
[2018-04-08] MEDS: DIPHENHYDRAMINE CREAM TP PRN ×2 (06:01→13:20)
[2018-04-08] MEDS ORDERED: PHENIRAMINE EACHEYE SCH (09:00)
[2018-04-08] MEDS ORDERED: DULoxetine 20 MG CAP PO SCH (09:00)
[2018-04-08] MEDS ORDERED: NAPHAZOLINE HCL/PHENIR 15 ML OPHT.BTL EACHEYE SCH (09:00)
[2018-04-08] MEDS ORDERED: NON-FORMULARY NEW DRUG (Esomeprazole Magnesium [Nexium] 20 MG) PO SCH (09:00)
[2018-04-08] MEDS ORDERED: SENNOSIDES/DOCUSATE SODIUM TAB PO SCH (09:00)
[2018-04-08] MEDS ORDERED: ATORVASTATIN CALCIUM 20 MG TAB PO SCH (09:00)
[2018-04-08] MEDS ORDERED: FUROSEMIDE 40 MG TAB PO SCH (09:00)
[2018-04-08] MEDS ORDERED: NAPHAZOLINE HCL EACHEYE SCH (09:00)
[2018-04-08] MEDS ORDERED: PANTOPRAZOLE SODIUM 40 MG TAB PO SCH (09:00)
[2018-04-08] MEDS: POTASSIUM CL 10 MEQ TAB PO SCH (09:59)
[2018-04-08 11:33] VITALS: BP 115/72
--- NOTE | 2018-04-08 13:48 | SOAPPROG ---
SOAP Progress Note Assessment/Plan: Assessment: s/p TURP yesterday - doing well. Plan: Discharge. Subjective: c/o dysuria. Otherwise doing well. Objective: Vital Signs Temp Pulse Resp BP Pulse Ox 36.3 C 59 L 17 115/72 96 04/08/18 11:31 04/08/18 11:31 04/08/18 11:31 04/08/18 11:31 04/08/18 11:31 04/07/18 04/08/18 04/09/18 05:59 05:59 05:59 Intake Total 2577 Output Total 1775 Balance 802 Physical Exam - Physical Exam General Appearance: WD/WN, alert, no apparent distress Abdomen: soft Skin: warm/dry Extremities: non-tender, normal inspection Neuro/Psych: alert, normal mood/affect, oriented x 3 ICD10 Worksheet Patient Problems: Problems Problem Status Onset Fusion of spine of cervical region Acute
--- NOTE | 2018-04-08 17:23 | GDS ---
[f rep st] DISCHARGE SUMMARY ADMITTING DIAGNOSIS: Benign prostatic hypertrophy with urinary obstruction. DISCHARGE DIAGNOSIS: Benign prostatic hypertrophy with urinary obstruction. PROCEDURES: Transurethral prostate resection on 04/07/2018. HOSPITAL COURSE: Refer to the operative report for details regarding the procedure. Postoperatively, the patient did well. His Bhatia catheter was removed on the morning of postoperativ e day 1, and he was voiding without difficulty. Urine was blood-tinged with some irritative voiding symptoms, as expected. His vital signs were stable, and he was afebrile during the postoperative per iod. He was ready for discharge on postoperative day 1. He was given activity restriction instructi ons. He will continue his preadmission medications and also take Uribel 1 capsule q.i.d. Prescripti on also provided for [place] 5 mg p.r.n. pain. He will return to the office in approximately 4 weeks, or sooner as needed. Pathology results were pending at the time of discharge. /[id number]/MODL
== END 2018-04-08 16:16 | disposition home or self-care (01) ==
LOC: F3N 10:50 → F1N 13:45
PROVIDERS: ADMIT Specialist; ATTEND Specialist
PROC: 0VT08ZZ Resection of Prostate, Via Natural or Artificial Opening Endoscopic (ICD-10-PCS; principal; 2018-04-07 12:15)
DX: N40.1 Benign prostatic hyperplasia with lower urinary tract symptoms (principal); N13.8 Other obstructive and reflux uropathy; N41.0 Acute prostatitis
CPT/HCPCS: 52601; 88305; J1100; J1956; J2250; J2405; J2704; J3010